=== PATIENT | female | born 1955 | race Caucasian/White ===

== ENCOUNTER 2019-10-27 10:47 | Outpatient (CLI) | payer BC, SELFPAY ==
--- NOTE | ~2019-10-27 | XR_ITS ---
EXAMINATION: XR ribs LT 2V w CXR 2V INDICATION: Left chest wall pain TECHNIQUE: PA and lateral views of the chest and 3 views of the left ribs were obtained. COMPARISON: 10/04/2011 FINDINGS: The lungs are free of acute opacities. There is no pleural effusion or pneumothorax. The ca rdiomediastinal silhouette is normal. There is mild levocurvature of the thoracic spine. There is mil d thoracic spondylosis. There is mild irregularity at left sixth costochondral junction. IMPRESSION: 1. Possible nondisplaced fracture at the left sixth costochondral junction. 2. No acute cardiopulmonary abnormality. Reviewed, dictated and finalized at location A. NTIFIC WRITER
== END 2019-10-27 10:48 | disposition home or self-care (01) ==
PROVIDERS: PCP Internal Medicine; Visit Provider Internal Medicine
DX: R07.89 Other chest pain (principal)
CPT/HCPCS: 71045; 71101

== ENCOUNTER 2020-07-02 08:32 | Outpatient (CLI) | payer OTHER, SELFPAY ==
[2020-07-02] MEDS: ZOLEDRONIC ACID 5 MG/100 ML 100 ML 400 MG IVPB (08:59)
[2020-07-02 09:00] VITALS: BP 117/70; PULSE 72; RESP 14; TEMP 36.6; O2SAT 98
== END 2020-07-02 08:33 | disposition home or self-care (01) ==
PROVIDERS: PCP Internal Medicine; Visit Provider Internal Medicine
DX: M81.0 Age-related osteoporosis without current pathological fracture (principal)
CPT/HCPCS: 96365; J3489

== ENCOUNTER 2021-04-28 13:27 | Outpatient (CLI) | payer BC, SELFPAY ==
[2021-04-28 14:58] LABS: SARS-CoV-2 RNA PCR Negative (Negative)
== END 2021-04-28 13:28 | disposition home or self-care (01) ==
PROVIDERS: PCP Internal Medicine; Visit Provider Internal Medicine
DX: Z20.822 Contact with and (suspected) exposure to COVID-19 (principal); J06.9 Acute upper respiratory infection, unspecified
CPT/HCPCS: C9803; U0003; U0005

== ENCOUNTER 2021-05-02 09:42 | Outpatient (CLI) | payer BC, SELFPAY ==
[2021-05-02 10:48] LABS: SARS-CoV-2 RNA PCR Positive (Negative)
== END 2021-05-02 09:43 | disposition home or self-care (01) ==
LOC: CHSLAB 09:44
PROVIDERS: PCP Internal Medicine; Visit Provider Internal Medicine
DX: U07.1 COVID-19 (principal)
CPT/HCPCS: C9803; U0003; U0005

== ENCOUNTER 2021-05-04 10:24 | Outpatient (CLI) | payer BC, SELFPAY ==
[2021-05-04] MEDS: ACETAMINOPHEN 325 MG TABLET 650 MG PO (10:45)
[2021-05-04] MEDS: FAMOTIDINE 20 MG TABLET PO (10:46)
[2021-05-04] MEDS: diphenhydrAMINE HCl CAP 25 MG CAPSULE PO (10:46)
[2021-05-04 11:00] VITALS: BMI 27.3
[2021-05-04 11:02] VITALS: BP 144/89; PULSE 77; RESP 18; TEMP 36.4
--- NOTE | 2021-05-04 11:04 | PC.NURSE ---
1050-- Patient ambulated to OP treatment room. C/o headache, sinus congestion and fatigue. Denies any SOB. Patient is Covid positive. Here today for IV infusion of Regeneron. Patient signed permit. Education regarding covid and the infusion given. --Idania Chicas RN
[2021-05-04 12:31] VITALS: BP 116/86; PULSE 60; RESP 18; TEMP 36.7
--- NOTE | 2021-05-04 12:55 | PC.NURSE ---
12:55-- Patient denies any side effects after receiving the IV infusion. Vital signs within normal limits for patient. Patient states I feel fine. Reviewed side effects with patient. Gave patient phone number to medical surgical floor. Instructed patient to call floor if has any problems or questions. Patient ambulated from OP treatment room independently. Safe exit from the hospital. --Idania Chicas RN
== END 2021-05-04 10:25 | disposition home or self-care (01) ==
PROVIDERS: PCP Internal Medicine; Visit Provider Internal Medicine
DX: Z23 Encounter for immunization (principal); U07.1 COVID-19
CPT/HCPCS: A9270; J7050; M0243; Q0243

== ENCOUNTER 2022-01-26 14:59 | Outpatient (CLI) | payer BC, SELFPAY ==
[2022-01-26 16:00] LABS: SARS-CoV-2 RNA PCR Positive (Negative)
== END 2022-01-26 15:00 | disposition home or self-care (01) ==
LOC: CHSLAB 15:01
PROVIDERS: PCP Nurse Practitioner Family; Visit Provider Nurse Practitioner Family
DX: U07.1 COVID-19 (principal); R05.9 Cough, unspecified; R50.9 Fever, unspecified
CPT/HCPCS: C9803; U0003; U0005

== ENCOUNTER 2022-03-07 07:52 | Outpatient (CLI) | payer BC, SELFPAY ==
--- NOTE | ~2022-03-07 | MM_ITS ---
EXAMINATION: MM screening [facility] BI w leyda HISTORY: Screening mammogram TECHNIQUE: Craniocaudal and mediolateral oblique 3-D tomosynthesis images were obtained and synthetic 2-D images were generated. CAD analysis was submitted and interpreted. COMPARISON: 08/31/2016, 08/19/2015 bilateral screening mammogram examinations BREAST PARENCHYMAL COMPOSITION: The breasts are almost entirely fatty. FINDINGS: There is no evidence of suspicious mass, calcification, or architectural distortion to sugg est malignancy in either breast. There has been no suspicious interval change. IMPRESSION: 1. No mammographic evidence of malignancy. 2. Recommend routine screening mammography in one year. BI-RADS Category 1: Negative Reviewed, dictated and finalized at location A.
--- NOTE | ~2022-03-07 | DEXA_ITS ---
Bone Density Report Name: RUSS VYAS Age: 66 Sex: Female Ethnicity: White Date of : 1955 Indication: hyperparathyroidism; prior fracture; cancer; hysterectomy; Referring Provider: Jessy Freed Study: Bone densitometry was performed. Exam Date: March 07, 2022 Accession number: [id number] Bone Density: Region BMD T-score Z-score Classification AP Spine(L1-L4) 0.741 -2.8 -0.9 Osteoporosis Femoral Neck (Left) 0.530 -2.9 -1.3 Osteoporosis Total Hip (Left) 0.759 -1.5 -0.2 Osteopenia Femoral Neck (Right) 0.541 -2.8 -1.2 Osteoporosis Total Hip (Right) 0.712 -1.9 -0.6 Osteopenia Femoral Neck Mean 0.535 -2.8 -1.2 Osteoporosis Total Hip Mean 0.736 -1.7 -0.4 Osteopenia World Health Organization criteria for BMD impression classify patients as: Normal (T-score at or above -1.0), Osteopenia (T-score between -1.0 and -2.5), or Osteoporosis (T-score at or below -2.5). 10-year Fracture Risk: FRAX not reported because: Some T-score for Spine Total or Hip Total or Femoral Neck at or below -2.5 Treated for osteoporosis Clinical Information Provided by Patient: Has had a low trauma fracture Is being treated for osteoporosis Has used the following medications: Reclast (i.e. zoledronate), Vitamin D Has the following medical conditions: Cancer, Hyperparathyroidism, Hysterectomy Patient maximum height was 62 Menopause Age: 46 No regular weight bearing exercise Does not regularly consume dairy products Drinks caffeinated beverages Onset of menses at age 15 Number of children 3 Impression: The patient has established osteoporosis, based on the Left Femoral Neck T-score and the existence of a prior fracture. The patient has risk factors, including: previous fracture. Discussion: It is important to ask patients whether they are taking their medications and to encourage continued and appropriate compliance with their osteoporosis therapies to reduce fracture risk. It is also important to review their risk factors and encourage appropriate calcium and vitamin D intakes, exercise, fall prevention and other lifestyle measures. Follow-Up: Consider a repeat BMD and Vertebral Fracture Assessment (VFA) exam in 2 years or sooner if medically necessary, to reassess this patient's status. Reported by: Dr. Alex Sinclair on 03/07/2022 8:33:00 AM. Reviewed, dictated and finalized at location AVania [facility]
== END 2022-03-07 07:53 | disposition home or self-care (01) ==
LOC: CHSIMG 07:54
PROVIDERS: PCP Internal Medicine; Visit Provider Student in an Organized Health Care Education/Training Program
DX: M81.0 Age-related osteoporosis without current pathological fracture (principal); Z12.31 Encounter for screening mammogram for malignant neoplasm of breast
CPT/HCPCS: 77063; 77067; 77080

== ENCOUNTER 2022-04-11 09:24 | Outpatient (CLI) | payer BC, SELFPAY ==
[2022-04-11 09:35] VITALS: BP 140/71; PULSE 88; RESP 14; TEMP 36.6; O2SAT 98
[2022-04-11] MEDS: ZOLEDRONIC ACID 5 MG/100 ML 100 ML 400 MG IVPB (09:35)
[2022-04-11 09:42] VITALS: BMI 27.3
--- NOTE | 2022-04-11 09:58 | PC.NURSE ---
Patient here for yearly Reclast infusion. Missed last year r/t Covid. Education given. No concerns voiced. IV Reclast administered. SEE MAR. Tolerated well. Safe exit hospital.
== END 2022-04-11 09:25 | disposition home or self-care (01) ==
LOC: CHSTREATRM 09:26
PROVIDERS: PCP Internal Medicine; Visit Provider Internal Medicine
DX: M81.0 Age-related osteoporosis without current pathological fracture (principal)
CPT/HCPCS: 96374; J3489

== ENCOUNTER 2022-09-09 21:48 | Emergency (ER) | payer BC, SELFPAY ==
[2022-09-09] VITALS (8 sets, daily range): BP systolic 141–181; BP diastolic 84–95; PULSE 90–106; RESP 15–23; TEMP 36.8; O2SAT 96–100
--- NOTE | ~2022-09-09 | XR_ITS ---
EXAMINATION: XR chest 2V DATE: 09/09/2022 22:45 INDICATION: Left chest pain TECHNIQUE: PA and lateral views of the chest were obtained. COMPARISON: Chest radiograph dated 10/27/2019 FINDINGS: Small calcified nodule at the right costophrenic angle consistent with old granulomatous disease. Per sistent mild streaky atelectasis/scarring at the left costophrenic angle. No other airspace opacities , pulmonary edema, pleural effusion or pneumothorax. The cardiomediastinal silhouette is normal. Mild thoracic spondylosis. IMPRESSION: 1. Unchanged mild atelectasis/scarring at the left costophrenic angle. No acute cardiopulmonary disea se. Reviewed, dictated and finalized at location A. GLASS BENDER IMPRESSION: 1. Unchanged mild atelectasis/scarring at the left costophrenic angle. No acute cardiopulmonary disease.
--- NOTE | 2022-09-09 22:23 | ECG_ITS ---
Measurements Intervals [place] Rate: 91 P: 25 MO: 152 QRS: -18 QRSD: 143 T: -9 QT: 386 QTc: 476 Interpretive Statements SINUS RHYTHM POSSIBLE LEFT ATRIAL ENLARGEMENT LOW-VOLTAGE QRS IN PRECORDIAL LEADS RIGHT BUNDLE BRANCH BLOCK ABNORMAL ECG NO PREVIOUS ECG AVAILABLE FOR COMPARISON Electronically Signed On 09-10-2022 15:34:23 [place] by Lakhwinder Reyes M.D.
--- NOTE | 2022-09-09 22:24 | ED.CHESTPAIN ---
HPI - Chest Pain General Chief Complaint: Chest Pain Stated Complaint: 2 days ago pain in neck;now armpit/chest;all Left Time Seen by Provider: 09/09/22 21:57 History of Present Illness HPI narrative: This is a 66-year-old female with past medical history of hypertension, hyperlipidemia who presents to the emergency department complaining of left axillary pain for the past 3 days. The patient notes approximately ago, she slipped and fell, landing on the bottom and had subsequent neck pain with occasional radiation to the left arm. 3 days ago, she notes she shaved under her armpit and approximately a day and a half later noted some swelling and pain in the area. It's described as dull and pressure-like, aggravated by movement of the arm or pressing in the axilla and alleviated by rest and warm compress. She states this is similar to a previous skin infection same area though worse. She denies fevers, chills, nausea/vomiting or cold sweats. She has no other complaints today. Related Data Home Medications Medication Instructions Recorded Confirmed atorvastatin 20 mg tablet 20 mg PO DAILY 06/23/20 04/11/22 levothyroxine 50 mcg capsule 25 mcg PO DAILY 06/23/20 04/11/22 metoprolol succinate 25 mg capsule 25 mg PO DAILY 06/23/20 04/11/22 sprinkle, ext. release 24 hr pantoprazole 20 mg tablet,delayed 40 mg PO QAM 06/23/20 04/11/22 release zoledronic acid 5 mg/100 mL in 5 mg IV ONCE 06/23/20 04/11/22 mannitol 5 %-water intravenous piggybck (Reclast) losartan See Rx Instructions .Route .COMPLEX 05/04/21 04/11/22 Allergies Allergy/AdvReac Type Severity Reaction Status Date / Time LONNIE Inhibitors Allergy Cough Verified 08/25/22 10:30 Review of Systems Review of Systems: CONSTITUTIONAL: Denies fever, chills, or sweats. EYES: Denies visual changes, redness, or discharge. ENT: Denies rhinorrhea, congestion, sore throat, or otalgia. CARDIOVASCULAR: Left axillary pain with radiation to the left chest denies palpitations, or edema. RESPIRATORY: Chronic dry cough, unchanged denies dyspnea. GASTROINTESTINAL: Denies abdominal pain, nausea, vomiting, or diarrhea. GENITOURINARY: Denies dysuria or hematuria. SKIN: Denies rash or itching. MUSCULOSKELETAL: Denies back pain, joint pain, or myalgia. NEUROLOGIC: Denies headache, numbness, dizziness, or weakness. PSYCHIATRIC: Denies anxiety or depression. [facility] Past Medical History Medical History Acid reflux Cystocele with rectocele High cholesterol Hypertension Irritable bowel syndrome Osteopenia Skin cancer on back Surgical History Surgical History H/O dilation and curettage H/O wrist surgery H/O: hysterectomy History of ankle surgery Family History Family History Mother Breast cancer Acute myocardial infarction Hypertension High cholesterol Father Cerebrovascular accident Other Family history of arthritis Family history of cardiovascular disease Social History Social History Smoking status: Never smoker Alcohol intake: current Drinks per week: 7 Substance use: never Exam Narrative: GENERAL: Well-developed, well-nourished, and in no acute distress. HEAD: Normocephalic, atraumatic. EYES: PERRLA and EOMI. ENT: Nares clear, no rhinorrhea or epistaxis. Mucous membranes moist. Oropharynx without tonsillar hypertrophy exudate or other lesions. Bilateral TMs pearly ott nonbulging NECK: Supple. No adenopathy or masses. No carotid bruits or JVD CHEST: Clear to auscultation. No respiratory distress. No wheezes rales or rhonchi. Tender to palpation at the lateral border of the left pectoral muscle, with small amount of swelling and in the axilla HEART: Regular rate and rhythm. No murmur heard. Normal peripheral pulses. ABDOME
[2022-09-09] MEDS: ACETAMINOPHEN 500 MG TABLET 1000 MG PO (22:30)
[2022-09-09 22:53] LABS: Basophils Absolute Auto 0.02 K/mm3 (0.00-0.10); Basophils Percent Auto 0.3 % (0.0-1.0); Eosinophils Absolute Auto 0.14 K/mm3 (0.02-0.50); Eosinophils Percent Auto 2.1 % (1.0-6.0); Hematocrit 41.3 % (35.0-42.0); Hemoglobin 13.5 g/dL (11.7-13.8); Immature Granulocyte Absolute 0.01 K/mm3 (0.00-0.00); Immature Granulocyte Percent A 0.2 % (0.0-0.0); Lymphocytes Absolute Auto 1.27 K/mm3 (1.10-4.50); Lymphocytes Percent Auto 19.4 % (18.0-42.0); Mean Corpuscular HGB Conc 32.7 g/dL (32.0-36.0); Mean Corpuscular Hemoglobin 28.7 pg (27.0-31.0); Mean Corpuscular Volume 87.9 fL (78.0-102.0); Mean Platelet Volume 10.2 fl (9.2-11.8); Monocytes Absolute Auto 0.44 K/mm3 (0.10-0.90); Monocytes Percent Auto 6.7 % (2.0-11.0); Neutrophils Absolute Auto 4.7 K/mm3 (1.7-7.2); Neutrophils Percent Auto 71.3 % (50.0-70.0); Platelet Count Result 236 K/mm3 (150-420); Red Cell Distribution Width 12.6 % (11.6-14.4); White Blood Count 6.5 K/mm3 (4.8-10.8)
[2022-09-09 23:11] LABS: Alanine Aminotransferase 24 U/L (14-59); Albumin Level 3.8 g/dL (3.4-5.0); Alkaline Phosphatase 79 U/L (46-116); Anion Gap 7 mmol/L (8-16); Aspartate Amino Transferase < 10 U/L (15-37); Bilirubin,Total 0.2 mg/dL (0.00-1.00); Blood Urea Nitrogen 16 mg/dL (7-18); Calcium 8.6 mg/dL (8.5-10.1); Carbon Dioxide 27 mmol/L (21-32); Chloride 108 mmol/L (98-108); Estimated CRCL calculation 49 ml/min; Estimated Glomerular Filt Rate > 60; Glucose 153 mg/dL (70-99); Osmolality Calculated 298 mOsm/kg (285-295); Potassium 3.8 mmol/L (3.5-5.1); Sodium 142 mmol/L (136-145); Troponin I 4.3 ng/L (0.00-60.4)
[2022-09-09] MEDS: CEPHALEXIN 500 MG CAPSULE PO (23:17)
== END 2022-09-09 23:27 | disposition home or self-care (01) ==
PROVIDERS: Emergency Provider Preventive Medicine Aerospace Medicine; PCP Internal Medicine
DX: L03.112 Cellulitis of left axilla (principal); E78.5 Hyperlipidemia, unspecified; I10 Essential (primary) hypertension
CPT/HCPCS: 36415; 71046; 80053; 84484; 85025; 93005; 99284; A9270

== ENCOUNTER 2023-04-16 08:01 | Outpatient (CLI) | payer BC, SELFPAY ==
--- NOTE | ~2023-04-16 | US_ITS ---
Limited Abdominal Sonogram: Real-time sonographic imaging of the right upper quadrant was performed. Clinical History: Right upper quadrant pain Findings: The liver appears normal with no evidence of mass lesion or bile duct dilatation. Main por abel vein demonstrates normal direction of flow. The gallbladder is well distended, and appears normal with no evidence of gallstone or wall thickening. The common bile duct measures 3 mm. The visualize d pancreas, aorta, and IVC are unremarkable. Impression: No significant abnormality seen. Reviewed, dictated and finalized at location M. Impression: No significant abnormality seen.
--- NOTE | ~2023-04-16 | MM_ITS ---
EXAMINATION: MM screening [facility] BI w leyda HISTORY: Screening mammogram TECHNIQUE: Craniocaudal and mediolateral oblique 3-D tomosynthesis images were obtained and synthetic 2-D images were generated. CAD analysis was submitted and interpreted. COMPARISON: 03/07/2022, 08/31/2016 bilateral screening mammogram examinations BREAST PARENCHYMAL COMPOSITION: The breasts are almost entirely fatty. FINDINGS: Stable benign circumscribed low-density intramammary lymph node in the posterior upper oute r left breast. Stable small bilateral circumscribed low-density axillary tail lymph nodes. Occasional benign calcifications. There is no evidence of suspicious mass, calcification, or architectural dist ortion to suggest malignancy in either breast. There has been no suspicious interval change. IMPRESSION: 1. No mammographic evidence of malignancy. 2. Recommend routine screening mammography in one year. BI-RADS Category 2: Benign finding(s). Reviewed, dictated and finalized at location A.
[2023-04-16 08:52] VITALS: BP 134/70; PULSE 78; RESP 14; TEMP 36.6; O2SAT 98
[2023-04-16 08:53] VITALS: BMI 26.5
[2023-04-16] MEDS: ZOLEDRONIC ACID 5 MG/100 ML 100 ML 400 MG IVPB (08:57)
--- NOTE | 2023-04-16 09:07 | PC.NURSE ---
Patient here for yearly IV Reclast infusion. Education given. No concerns voiced. IV Reclast administered see NOV.
--- NOTE | 2023-04-16 09:12 | PC.NURSE ---
Tolerated infusion well. Safe exit hospital. Will return next year when get a order.
== END 2023-04-16 08:02 | disposition home or self-care (01) ==
PROVIDERS: PCP Internal Medicine; Visit Provider Internal Medicine
DX: R10.11 Right upper quadrant pain (principal); M81.0 Age-related osteoporosis without current pathological fracture; Z12.31 Encounter for screening mammogram for malignant neoplasm of breast
CPT/HCPCS: 76705; 77063; 77067; 96374; J3489

== ENCOUNTER 2024-04-24 13:12 | Outpatient (CLI) | payer OTHER, SELFPAY ==
--- NOTE | ~2024-04-24 | DEXA_ITS ---
Bone Density Report Name: RUSS VYAS Age: 68 Sex: Female Ethnicity: White Date of : 1955 Indication: postmenopausal osteoporosis; monitoring treatment; hyperparathyroidism; prior fracture; cancer; hysterectomy; Referring Provider: Keenan Palacios Study: Bone densitometry was performed. Exam Date: April 24, 2024 Accession number: [id number] Bone Density: Region BMD T-score Z-score Classification AP Spine(L1-L4) 0.742 -2.8 -0.8 Osteoporosis Femoral Neck (Left) 0.579 -2.4 -0.7 Osteopenia Total Hip (Left) 0.726 -1.8 -0.3 Osteopenia Femoral Neck (Right) 0.560 -2.6 -0.9 Osteoporosis Total Hip (Right) 0.698 -2.0 -0.6 Osteopenia Femoral Neck Mean 0.569 -2.5 -0.8 Osteoporosis Total Hip Mean 0.712 -1.9 -0.5 Osteopenia World Health Organization criteria for BMD impression classify patients as: Normal (T-score at or above -1.0), Osteopenia (T-score between -1.0 and -2.5), or Osteoporosis (T-score at or below -2.5). 10-year Fracture Risk: FRAX not reported because: Some T-score for Spine Total or Hip Total or Femoral Neck at or below -2.5 Treated for osteoporosis Previous Exams: Region Exam Age BMD T-score BMD Change BMD Change Date g/cm2 vs Baseline vs Previous AP Spine (L1-L4) 04/24/2024 68 0.742 -2.8 0.001 (0.1%) 0.001 (0.1%) 03/07/2022 66 0.741 -2.8 Total Hip(Left) 04/24/2024 68 0.726 -1.8 -0.033 (-4.3%) -0.033 (-4.3%) 03/07/2022 66 0.759 -1.5 Total Hip(Right) 04/24/2024 68 0.698 -2.0 -0.015 (-2.1%) -0.015 (-2.1%) 03/07/2022 66 0.712 -1.9 *Denotes significance at 95% confidence level, LSC for AP Spine = 0.022 g/cm2, LSC for Total Hip = 0.027 g/cm2 Clinical Information Provided by Patient: Has had a low trauma fracture Is being treated for osteoporosis Has used the following medications: Reclast (i.e. zoledronate), Vitamin D Has the following medical conditions: Cancer, Hyperparathyroidism, Hysterectomy Patient maximum height was 62 Menopause Age: 50 No regular weight bearing exercise Does not regularly consume dairy products Drinks caffeinated beverages Onset of menses at age 15 Number of children 3 Impression: The patient has established osteoporosis, based on the Total Spine T-score and the existence of a prior fracture. The patient has risk factors, including: previous fracture. The BMD for the Total Hip(Left) decreased, changing by -4.3% since the last DXA exam. Discus
--- NOTE | ~2024-04-24 | MM_ITS ---
EXAMINATION: MM screening [facility] BI w leyda HISTORY: Screening TECHNIQUE: Craniocaudal and mediolateral oblique 3-D tomosynthesis images were obtained and synthetic 2-D images were generated. CAD analysis was submitted and interpreted. COMPARISON: Comparison to multiple prior studies sequentially, with oldest reviewed study dated 11/2014. BREAST PARENCHYMAL COMPOSITION: Not dense: There are scattered areas of fibroglandular density. FINDINGS: There is no evidence of suspicious mass, calcification, or architectural distortion to sugg est malignancy in either breast. There has been no suspicious interval change. IMPRESSION: 1. No mammographic evidence of malignancy. 2. Recommend routine screening mammography in one year. BI-RADS Category 1: Negative Reviewed, dictated and finalized at location B.
== END 2024-04-24 13:13 | disposition home or self-care (01) ==
LOC: CHSIMG 13:14
PROVIDERS: PCP Internal Medicine; Visit Provider Internal Medicine
DX: Z12.31 Encounter for screening mammogram for malignant neoplasm of breast (principal); Z78.0 Asymptomatic menopausal state; M85.89 Other specified disorders of bone density and structure, multiple sites; M81.0 Age-related osteoporosis without current pathological fracture
CPT/HCPCS: 77063; 77067; 77080

== ENCOUNTER 2024-05-07 10:29 | Outpatient (CLI) | payer OTHER, SELFPAY ==
--- NOTE | ~2024-05-07 | XR_ITS ---
XR foot RT min 3V Ordering provider: Keenan Palacios MD History: . R mid foot pain x 1 month . Comparison: None. FINDINGS: BONES: No acute fracture or dislocation. Calcaneus spur. JOINT SPACES: Osteoarthritic changes of the ankle joint with cystic changes in the talus. No tarsal c oalition. SOFT TISSUES: Normal. IMPRESSION: No acute osseous abnormality of the right foot. Osteoarthritic changes of the ankle joint. Calcaneal spur. Reviewed, dictated and finalized at location A.
== END 2024-05-07 10:30 | disposition home or self-care (01) ==
LOC: CHSIMG 10:31
PROVIDERS: PCP Internal Medicine; Visit Provider Internal Medicine
DX: M79.671 Pain in right foot (principal); M19.071 Primary osteoarthritis, right ankle and foot; M77.31 Calcaneal spur, right foot
CPT/HCPCS: 73630

== ENCOUNTER 2024-08-04 08:20 | Outpatient (CLI) | payer OTHER, SELFPAY ==
[2024-08-04 08:59] VITALS: BP 136/86; PULSE 74; RESP 18; TEMP 36.4; O2SAT 98
[2024-08-04] MEDS: ZOLEDRONIC ACID 5 MG/100 ML 100 ML 400 MG IVPB (09:14)
== END 2024-08-04 08:21 | disposition home or self-care (01) ==
LOC: CHSTREATRM 08:23
PROVIDERS: PCP Internal Medicine; Visit Provider Internal Medicine
DX: M81.0 Age-related osteoporosis without current pathological fracture (principal)
CPT/HCPCS: 96374; J3489

== ENCOUNTER 2024-09-27 12:18 | Emergency (ER) | payer OTHER, SELFPAY ==
--- NOTE | ~2024-09-27 | XR_ITS ---
XR ankle RT min 3V DATE: 09/27/2024 12:29 INDICATION: Fall. Right ankle pain. TECHNIQUE: 3 views COMPARISON: None FINDINGS: There is osteopenia. Mild ankle soft tissue swelling. There is a virtually nondisplaced linear transverse fracture of the lateral malleolus. There is a virtually nondisplaced linear transverse fracture of the medial malleolus. The posterior malleolus appears intact. The ankle mortise appears preserved. Mild posterior and prominent plantar calcaneal enthesopathy. IMPRESSION: Virtually nondisplaced bimalleolar fracture Reviewed, dictated and finalized at location A. LOOP MACHINE OPERATOR
[2024-09-27 12:20] VITALS: BP 115/63; PULSE 88; RESP 14; TEMP 37.4; O2SAT 97
--- NOTE | 2024-09-27 12:23 | ED.LOWEXIN ---
HPI - Extremity Injury (Lower) General Chief Complaint: Extremity Injury, Lower Stated Complaint: ankle injury Time Seen by Provider: 09/27/24 12:22 Source: patient and family Mode of arrival: wheelchair Limitations: no limitations History of Present Illness HPI Narrative: this is a 69-year-old female presents with a right ankle injury after she slipped on a patch of ice fell injured the lateral aspect of her right ankle with no other injuries noted there is some mild swelling no bruising no numbness or tingling has good range of motion of her ankle. Did take Aleve prior to arrival to the emergency department. Current pain level is about 2/10. complaint: ankle injury Onset (ago): hour(s) Injury: Right: ankle ( pain with swelling) Type of Injury: inversion Place: street/outdoors Severity: mild Severity scale (1-10): 2 Relieving factors: NSAID Related Data Home Medications ?Medication ?Instructions ?Recorded ?Confirmed ?Last Taken ?Type atorvastatin 20 mg tablet 20 mg PO DAILY 06/23/20 09/27/24 08/03/24 History levothyroxine 50 mcg capsule 25 mcg PO DAILY 06/23/20 09/27/24 08/03/24 History metoprolol succinate 25 mg capsule 25 mg PO DAILY 06/23/20 09/27/24 08/04/24 History sprinkle, ext. release 24 hr pantoprazole 20 mg tablet,delayed 40 mg PO QAM 06/23/20 09/27/24 08/03/24 History release zoledronic acid 5 mg/100 mL in 5 mg IV ONCE 06/23/20 09/27/24 04/16/23 History mannitol 5 %-water intravenous 5 piggybck (Reclast) losartan See Rx Instructions .Route .COMPLEX 05/04/21 09/27/24 08/03/24 History ciprofloxacin HCl 250 mg tablet 250 mg PO Q12H 09/27/24 09/27/24 Unknown History Allergies Allergy/AdvReac Type Severity Reaction Status Date / Time LONNIE Inhibitors Allergy Cough Verified 09/27/24 12:19 Review of Systems Review of Systems: All systems reviewed & are unremarkable except as noted in HPI and below PMFSH Past Medical History Medical History Skin cancer on back Osteopenia Cystocele with rectocele Hypertension Irritable bowel syndrome High cholesterol Acid reflux Surgical History Surgical History H/O wrist surgery H/O dilation and curettage History of ankle surgery H/O: hysterectomy Family History Family History Mother Breast cancer Acute myocardial infarction Hypertension High cholesterol Father Cerebrovascular accident Other Family history of arthritis Family history of cardiovascular disease Social History Social History Smoking status: Never smoker Alcohol intake: current Drinks per week: 7 Substance use: never Exam Const: General: healthy appearing, no acute distress and alert Nutritional Appearance: well nourished Orientation/consciousness: patient oriented x3 Limitations: no limitations Resp: Effort & Inspection: normal respiratory effort Auscultation: clear to auscultation bilaterally Cardio: Rate: regular rate Rhythm: regular rhythm GI: GI Palp: Yes Soft to palpation Auscultation: normal bowel sounds Skin: General skin exam: normal color Rashes: no rashes Neuro: General: patient oriented x3 and moves all extremities Extrem: Other: Mild swelling to the lateral malleolus of the right ankle. Course Course Emergency Course: X-ray of the right ankle performed reviewed with patient and family. Vital Signs Vital signs: Vital Signs Temperature 37.4 C 09/27/24 12:20 Pulse Rate 88 09/27/24 12:20 Respiratory Rate 14 09/27/24 12:20 Blood Pressure 115/63 09/27/24 12:20 Pulse Oximetry 97 09/27/24 12:20 Oxygen Delivery Room Air 09/27/24 12:20 Temperature 37.4 C 09/27/24 12:20 Pulse Rate 88 09/27/24 12:20 Respiratory Rate 14 09/27/24 12:20 Blood Pressure 115/63 09/27/24 12:20 Pulse Oximetry 97 09/27/24 12:20 Oxygen Delivery Room Air 09/27/24 12:20 Critical Care Time Critical Care Time Critical Care Time: No Discharge Plan Discharge Clinical Impression: Fracture of ankle Patient Disposition: Home, Self-Care Condition: Stable Instructions: Antibiotic Form, Ankle Fracture (ED) Additional Instructions: advised to take medication as prescribed as needed, follow with primary and Orthopedics further evaluation and treatment. No weight-bearing until seen by orthopedist. Patient unwilling to do a posterior OCL and is willing to do only a short cast for her unstable fracture of her by malleolar ankle. Advised patient of the risks and patient understands and still wants to proceed with some posterior OCL. Patient Language: [place] Prescriptions: New tramadol 50 mg tablet 50 mg PO Q6H PRN (Reason: pain) Qty: 20 0RF No Action losartan See Rx Instructions .ROUTE .COMPLEX Rx Instructions: 50 mg orally ciprofloxacin HCl 250 mg tablet 250 mg PO Q12H pantoprazole 20 mg tablet,delayed release (DR/EC) 40 mg PO QAM atorvastatin 20 mg tablet 20 mg PO DAILY metoprolol succinate 25 mg capsule,sprinkle,ER 24hr 25 mg PO DAILY levothyroxine 50 mcg capsule 25 mcg PO DAILY zoledronic [id number] [Reclast] 5 mg/100 mL piggyback 5 mg IVPB ONCE Rx Instructions: administer over at least 15 mins nystatin 100,000 unit/gram powder 1 applic topical BID Qty: 60 2RF nystatin 100,000 unit/gram cream 1 applic topical BID Qty: 15 0RF Follow-up/Referrals: Keenan Palacios MD [Primary Care Provider] - Time of Disposition: 13:23
--- NOTE | 2024-09-27 13:20 | PC.NURSE ---
pt states she cannot tolerate an ocl. states her skin itches and she has anxiety and claustrophobia. states she will take it off at home. requesting a gel stirrup splint only. erp and this software writer at bedside explaining need for immobilization. pt continues to refuse ocl. states she will sx an ama form if needed.
--- NOTE | 2024-09-27 13:34 | PC.NURSE ---
pt allowed stockinet and soft roll to be applied. requesting a gel stirrup splint at this point. continues to refuse ocl. awaiting call back from ortho o/c at [facility] for splinting advise. neuro-circ checks to distal right foot remains wnl. arom noted to same. right ppp. right leg elevated on pillow.
[2024-09-27 14:00] VITALS: BP 129/70; PULSE 71; RESP 18; TEMP 36.8; O2SAT 99
== END 2024-09-27 14:06 | disposition home or self-care (01) ==
LOC: CHSED 12:54
PROVIDERS: Emergency Provider Emergency Medicine; PCP Internal Medicine
DX: S82.844A Nondisplaced bimalleolar fracture of right lower leg, initial encounter for closed fracture (principal); W00.0XXA Fall on same level due to ice and snow, initial encounter
CPT/HCPCS: 29515; 73610; 99284; L4350

== ENCOUNTER 2024-10-10 13:35 | Outpatient (CLI) | payer OTHER, SELFPAY ==
--- NOTE | ~2024-10-10 | XR_ITS ---
HISTORY: Rt. ankle fracture x2 weeks, f/u COMPARISON: 09/30/2024 TECHNIQUE: 3 views of the right ankle were performed FINDINGS: Redemonstration of an irregular lucency within the lateral distal fibula corresponding to patient's k nown lateral malleolar fracture. Trace callus formation is identified. Minimally transverse lucency within the medial malleolus, largely unchanged from prior. Trace callus formation is identified. Large calcaneal spur. Ossification of the insertion of the Achilles tendon. IMPRESSION: Redemonstration of patient's known bimalleolar fracture with only trace callus formation , as detailed above. Reviewed, dictated and finalized at location A. GE REPAIR CREW PERSON IMPRESSION: Redemonstration of patient's known bimalleolar fracture with only trace callus formation, as detailed above.
--- OUTSIDE RECORDS SUMMARY | 2024-10-10 13:39 | XMS_ITS | Encounter Summary ---
Author Organization [facility] Address [address] [facility] [place] [address] Care Team Providers Care Recreation Program Specialist Name Role Phone Keenan Palacios MD Primary Care Provider [phone] Encounter Details Date Type Department Care Team (Late st Contact Info) Description 09/05/2023 Lab Requisition [facility] - DermPath Lab [address] [facility], [place] [address] Alejandra Gilbert MD [address] [facility] 3 [place] [address] Social History Tobacco Use Types Packs/Day Years Used Date Smoking Tobacco: Never Smokeless Tobacco: Never Alcohol Use Standard Drinks/Week Comments Yes 2.5 (1 standard drink = 0.6 oz p ure alcohol) Sex and Gender Information Value Date Recorded Sex Assigned at Not on file Gender Identity Not on file Sexual Orientation Not on file documented as of this encounter Plan of Treatment Not on file documented as of this encounter Procedures Procedure Name Priority Date/Time Associated Diagnosis Comments DERMATOPATHOLOGY Routine 09/05/2023 9:11 AM EXECUTIVE VICE PRESIDENT documented in this encounter Results * DERMATOPATHOLOGY (09/05/2023 9:11 AM EXECUTIVE VICE PRESIDENT) Case Report Dermatopathology Report ? Case: [id number] ? Authorizing Provider: ??Alejandra Gilbert MD ?Collected: ? 09/05/2023 09:11 AM ? Ordering Location: ? [facility] DermPath Lab ? Received: ?09/05/2023 02:08 PM ? Pathologist: ? Jennie Guzman MD ? Specimen: ?Skin, left FA ? 3 1:08 PM [facility] DERMATOPATHOLOGY LABORATORY Final Diagnosis Specimen A. SKIN, left FA: DERMAL SCAR RESIDUAL SQUAMOUS CELL CARCINOMA NOT IDENTIFIED (L90.5) BENIGN VERRUCOUS KERATOSIS (L82.1) 3 1:08 PM [facility] DERMATOPATHOLOGY LABORATORY Clinical History SCCIS 3 1:08 PM [facility] DERMATOPATHOLOGY LABORATORY Gross Description Specimen A: Received is one formalin filled container labeled with the patient's name and designated left FA. The specimen consists of a non-oriented ellipse of skin measuring 99i97o0 mm. The margin is inked green. The 12 o'clock and 6 o'clock tips are submitted in cassette 1. The remainder of the ellipse is serially sectioned and submitted in cassette 2 - 3. Jar 0. 3 1:08 PM [facility] DERMATOPATHOLOGY LABORATORY Microscopic Description Specimen A. SKIN, left FA: There are fibroblasts and collagen bundles oriented parallel to the skin surface. There are elongated blood vessels, some of which are oriented perpendicular to the skin surface. No residual squamous cell carcinoma is identified. Sections show hyperkeratosis, papillomatosis, hypergranulosis, and acanthosis. These histological findings can be seen in a verruca vulgaris or a seborrheic keratosis. 3 1:08 PM [facility] DERMATOPATHOLOGY LABORATORY Disclaimer An external and internal positive and negative controls are appropriate for the histochemical, immunohistochemical and immunofluorescence stain(s) in this case (if any), except where stated explicitly. The performance characteristics of the stain(s) cited in this report were developed and its performance characteristic determined by the Dermatopathology Laboratory at [facility], directed by Dr. Mimi Briseno. These tests need not be, and therefore are not, approved by the [place] Food and Drug Administration. The tests are used for clinical purposes. Billing Codes Specimen Charges Stain Charges 07449 1 3 1:08 PM [facility] DERMATOPATHOLOGY LABORATORY Embedded Images 3 1:08 PM [facility] DERMATOPATHOLOGY LABORATORY Pathology/Cytolo gy TISSUE SPECIMEN FROM SKIN / Unknown 09/05/2023 9:11 AM EXECUTIVE VICE PRESIDENT 09/05/2023 2:08 PM EXECUTIVE VICE PRESIDENT Alejandra Gilbert MD LAB - PATHOLOGY/CYTO LOGY ORDERABLES DERMATOPATHOLOGY LABORATORY [facility] - Department of Dermatology [address], [address] [phone] documented in this encounter Visit Diagnoses Not on filedocumented in this encounter Care Teams Recreation Program Specialist Relationship Specialty Start Date End Date Keenan Palacios MD [address] [place] [phone] PCP - General 07/26/21 documented as of this encounter
--- OUTSIDE RECORDS SUMMARY | 2024-10-10 13:39 | XMS_ITS | Encounter Summary ---
Author Organization [facility] Address [address] [facility] [place] [address] Care Team Providers Care Airplane Navigator Name Role Phone Keenan Palacios MD Primary Care Provider [phone] Encounter Details Date Type Department Care Team (Late st Contact Info) Description 07/18/2023 Lab Requisition [facility] - DermPath Lab [address] [facility], [place] [address] Alejandra Gilbert MD [address] [facility] 3 [place] [address] Social History Tobacco Use Types Packs/Day Years [...] Priority Date/Time Associated Diagnosis Comments DERMATOPATHOLOGY Routine 07/18/2023 10:0 7 AM CDT documented in this encounter Results * DERMATOPATHOLOGY (07/18/2023 10:07 AM CDT) Case Report Dermatopathology Report ? Case: [id number] ? Authorizing Provider: ??Alejandra Gilbert MD ?Collected: ? 07/18/2023 10:07 AM ? Ordering Location: ? [facility] DermPath Lab ? Received: ?07/19/2023 06:01 AM ? Pathologist: ? Jennie Guzman MD ? Specimen: ?Skin, left forearm ? 3 2:59 PM CDT DERMATOPATHOLOGY LABORATORY Final Diagnosis Specimen A. 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 The specimen consists of a shave biopsy measuring 6x5x1 mm. Jar 0. 3 2:59 PM CDT DERMATOPATHOLOGY LABORATORY Microscopic Description Specimen A. SKIN, left forearm: The epidermis shows parakeratosis, full thickness disorderly maturation of keratinocytes, mitoses at different levels, and dyskeratotic cells. Additionally, there is focal parakeratosis. The lower half of the epidermis shows disorderly maturation of keratinocytes with nuclear pleomorphism. 3 2:59 PM CDT DERMATOPATHOLOGY LABORATORY Disclaimer An external and internal positive and negative controls are appropriate for the histochemical, immunohistochemical and immunofluorescence stain(s) in this case (if any), except where stated explicitly. The performance characteristics of the stain(s) cited in this report were developed and its performance characteristic determined by the Dermatopathology Laboratory at [facility], directed by Dr. Mimi Briseno. These tests need not be, and therefore are not, approved by the [place] Food and Drug Administration. The tests are used for clinical purposes. Billing Codes Specimen Charges Stain Charges 86080 1 3 2:59 PM CDT DERMATOPATHOLOGY LABORATORY Embedded Images 3 2:59 PM CDT DERMATOPATHOLOGY LABORATORY Pathology/Cytolo gy TISSUE SPECIMEN FROM SKIN / Unknown 07/18/2023 10:07 AM CDT 07/19/2023 6:01 AM CDT Alejandra Gilbert MD LAB - PATHOLOGY/CYTO LOGY ORDERABLES DERMATOPATHOLOGY LABORATORY [facility] - Department of Dermatology [facility] [address] [place] [address], [address] [phone] documented in this encounter Visit Diagnoses Not on filedocumented in this encounter Care Teams Airplane Navigator Relationship Specialty Start Date End Date Keenan Palacios MD [address] [place] [phone] PCP - General 07/26/21 documented as of this encounter
--- OUTSIDE RECORDS SUMMARY | 2024-10-10 13:39 | XMS_ITS | Clinical Summary ---
Author Organization [facility] Address [address] [place] [address] Care Team Providers Care Log Yard Manager Name Role Phone Keenan Palacios MD Primary Care Provider [phone] Source Comments [facility],non-owned Affiliates and Associated Physician Practices is amultiple site organization consisting of ambulatory clinics and hospital sitesin [place], [place], [place] and [place]. This disclosure is being madepursuant to the Care Everywhere program and may not contain all information available regarding this patient. Last updated 18.[facility] Allergies No known active allergies Medications * Be aware that medications may not be up to date on this document. Alwaysverify current medications with the patient. Medication Sig Dispensed Refills Start Date End Date Status metoprolol tartrate IR (LOPRESSOR) 100 MG tablet Take 100 mg by mouth 2 times daily. Active RSREMKT-LFDXSDKOX-Y ITAMIN D PO Take by mouth. Calcium 630/Vit D 400 Active Zoledronic Acid (RECLAST IV) by Intravenous route. One time per year Active docusate sodium (COLACE) 100 MG capsule Take 1 Cap by mouth 2 times daily. 100 Cap 5 05/16/2011 Active sulfamethoxazole-tr imethoprim (BACTRIM DS; SEPTRA DS) 800-160 MG tablet Take 1 Tab by mouth every 12 hours. For duration of catheterization. If patient is sent home without a catheter, this prescription may be disregarded. 14 Tab 0 05/16/2011 Active oxycodone-acetamino phen (PERCOCET) 5-325 MG tablet Take 1 Tab by mouth every 6 hours as needed for Pain. 30 Tab 0 05/16/2011 Active Active Problems No known active problems Social History Tobacco Use Types Packs/Day Years Used Date Smoking Tobacco: Never Smokeless Tobacco: Never Alcohol Use Standard Drinks/Week Comments Yes 2.5 (1 standard drink = 0.6 oz p ure alcohol) Sex and Gender Information Value Date Recorded Sex Assigned at Not on file Gender Identity Not on file Sexual Orientation Not on file Last Filed Vital Signs Vital Sign Reading Time Taken Comments Blood Pressure 127/65 05/16/2011 12:10 PM CDT Pulse 61 05/16/2011 7:50 AM CDT Temperature 36.7 ??C (98.1 ??F) 05/16/2011 12:10 PM C DT Respiratory Rate 18 05/16/2011 12:10 PM CDT Oxygen Saturation 98% 05/16/2011 12:10 PM CDT Inhaled Oxygen Concentration - - Weight 68 kg (150 lb) 05/12/2011 11:35 AM CDT Height 157.5 cm (5' 2 ) 05/12/2011 11:35 AM CDT Body Mass Index 27.44 05/12/2011 11:35 AM CDT Plan of Treatment Health Maintenance Due Date Last Done Comments BONE DENSITY TESTING 1955 COLOGUARD (AGES 45-75) - COL ON CA SCREENING 1955 COLON MONITORING 1955 COLONOSCOPY - COLON CA SCREENING 1955 CT COLONOGRAPHY - COLON CA SCREENING 1955 Colorectal Cancer Screening 1955 FIT - COLON CA SCREENING 1955 FLEX SIG - COLON CA SCREENING 1955 LIPID TESTING 1955 MAMMOGRAM 1955 HEPATITIS C SCREENING 09/05/1973 DTAP/TDAP/TD VACCINES (1 - Tdap) 1974 PNEUMOCOCCAL VACCINE 50+ (1 of 1 - PCV) 2005 ZOSTER VACCINE (1 of 2) 2005 COVID-19 VACCINE ( - 2023-2 5 season) 2024 INFLUENZA VACCINE (#1) 2024 DEPRESSION SCREENING 09/17/2024 Respiratory Syncytial Virus (RSV) Vaccine Pt: or over 60 yrs (1 - 1-dose 75+ series) 2030 HEPATITIS B VACCINE Aged Out No longe r eligible based on patient's age to complete this topic HIB VACCINE Aged Out No longer eligi ble based on patient's age to complete this topic HPV VACCINE Aged Out No longer eligi ble based on patient's age to complete this topic MENINGOCOCCAL (Group B) VACCINE Aged Out No longer eligible based on patient's age to complete this topic MENINGOCOCCAL VACCINE Aged Out No damon akshat eligible based on patient's age to complete this topic Advance Directives * FULL RESUSCITATION (Latest Code Status on File) Date Activated Date Inactivated Comments 05/15/2011 12:38 PM 05/17/2011 5:10 AM Care Teams Log Yard Manager Relationship Specialty Start Date End Date Keenan Palacios MD [address] [place] [address] PCP - General 07/26/21
--- OUTSIDE RECORDS SUMMARY | 2024-10-10 13:39 | XMS_ITS | Referral Summary ---
Author Organization [facility] Address [address] [place] [address] Care Team Providers Care Dye Range Tender Name Role Phone Keenan Palacios MD Primary Care Provider Source Comments [facility],non-owned Affiliates and Associated Physician Practices is amultiple site organization consisting of ambulatory clinics and hospital sitesin [place], [place], [place] and [place]. This disclosure is being madepursuant to the Care Everywhere program and may not contain all information available regarding this patient. Last updated 18.[facility] Allergies No known active allergies Medications * Be aware that medications may not be up to date on this document. Alwaysverify current medications with the patient. Medication Sig Dispensed Refills Start Date End Date Status metoprolol tartrate IR (LOPRESSOR) 100 MG tablet Take 100 mg by mouth 2 times daily. Active [id number]-R ITAMIN D PO Take by mouth. Calcium [...] 05/12/2011 11:35 AM CDT Plan of Treatment Not on file Advance Directives * FULL RESUSCITATION (Latest Code Status on File) Date Activated Date Inactivated Comments 05/15/2011 12:38 PM 05/17/2011 5:10 AM Care Teams Dye Range Tender Relationship Specialty Start Date End Date Keenan Palacios MD [address] [place] [address] [facility] - General 07/26/21
--- OUTSIDE RECORDS SUMMARY | 2024-10-10 13:39 | XMS_ITS | Patient Health Summary ---
Author Organization [facility] Address [address] [place] [address] Care Team Providers Care Rn Shift Mgr Name Role Phone Keenan Palacios MD Primary Care Provider [phone] Note from [facility],non-owned Affiliates and Associated Physician Practices is amultiple site organization consisting of ambulatory clinics and hospital sitesin [place], [place], [place]. This disclosure is being madepursuant to the Care Everywhere program and may not contain all information available regarding this patient. Last updated 18.[facility] Allergies No known active allergies Medications * Be aware that medications may not be up to date on this document. Alwaysverify current medications with the patient. * metoprolol tartrate IR (LOPRESSOR) 100 MG tablet Take 100 mg by mouth 2 times daily. * XNMVRPH-JEGUTORYR-JYUTXRG D PO Take by mouth. Calcium 630/Vit D 400 * Zoledronic Acid (RECLAST IV) by Intravenous route. One time per year * docusate sodium (COLACE) 100 MG capsule(Started 05/16/2011) Take 1 Cap by mouth 2 times daily. 5 refills left * sulfamethoxazole-trimethoprim (BACTRIM DS; SEPTRA DS) 800-160 MG tablet (Started 05/16/2011) Take 1 Tab by mouth every 12 hours. For duration of catheterization. If patient is sent home without a catheter, this prescription may be disregarded. * oxycodone-acetaminophen (PERCOCET) 5-325 MG tablet(Started 05/16/2011) Take 1 Tab by mouth every 6 hours as needed for Pain. Active Problems No known active problems Social [...] Mass Index 27.44 05/12/2011 11:35 AM CDT Procedures * DERMATOPATHOLOGY(Performed 09/05/2023) * DERMATOPATHOLOGY(Performed 07/18/2023) * DERMATOPATHOLOGY(Performed 08/16/2021) * DERMATOPATHOLOGY(Performed 07/26/2021) * UROFLOWMETRY(Performed 05/17/2011) * CARDIAC EKG ORDER(Performed 05/17/2011) * LAB RESULTS ORDER(Performed 05/17/2011) * IMAGING/RADIOLOGY/XRAY RESULTS ORDER(Performed 05/17/2011) * HGB HCT PANEL(Performed 05/16/2011) * TYPE + SCREEN PANEL(Performed 05/15/2011) * GROSS + MICRO EXAM(Performed 08/28/2005) Results * DERMATOPATHOLOGY (09/05/2023 9:11 AM RADIO MESSAGE ROUTER) Only the most recent of4 resultswithin the time period is included. Case Report Dermatopathology Report ? Case: [id number] ? Authorizing Provider: ??Alejandra Gilbert MD ?Collected: ? 09/05/2023 09:11 AM ? Ordering Location: ? [facility] DermPath Lab ? Received: ?09/05/2023 02:08 PM ? Pathologist: ? Jennie Guzman MD ? Specimen: ?Skin, left FA ? 3 1:08 PM [facility] DERMATOPATHOLOGY LABORATORY Final Diagnosis Specimen A. SKIN, left FA: DERMAL SCAR RESIDUAL SQUAMOUS CELL CARCINOMA NOT IDENTIFIED (L90.5) BENIGN VERRUCOUS KERATOSIS (L82.1) 3 1:08 PM [facility] DERMATOPATHOLOGY LABORATORY Clinical History SCCIS 3 1:08 PM [facility] DERMATOPATHOLOGY LABORATORY Gross Description Specimen A: Received is one formalin filled container labeled with the patient's name and designated left FA. The specimen consists of a non-oriented ellipse of skin measuring 12g85o5 mm. The margin is inked green. The 12 o'clock and 6 o'clock tips are submitted in cassette 1. The remainder of the ellipse is serially sectioned and submitted in cassette 2 - 3. Jar 0. 3 1:08 PM [facility] DERMATOPATHOLOGY LABORATORY Microscopic Description Specimen A. SKIN, [...] or a seborrheic keratosis. 3 1:08 PM [facility] DERMATOPATHOLOGY LABORATORY Disclaimer An external and internal positive and negative controls are appropriate for the histochemical, immunohistochemical and immunofluorescence stain(s) in this case (if any), except where stated explicitly. The performance characteristics of the stain(s) cited in this report were developed and its performance characteristic determined by the Dermatopathology Laboratory at [facility], directed by Dr. Mimi Briseno. These tests need not be, and therefore are not, approved by the [place] Food and Drug Administration. The tests are used for clinical purposes. Billing Codes Specimen Charges Stain Charges 50064 1 3 1:08 PM [facility] DERMATOPATHOLOGY LABORATORY Embedded Images 3 1:08 PM [facility] DERMATOPATHOLOGY LABORATORY Pathology/Cytolo gy TISSUE SPECIMEN FROM SKIN / Unknown 09/05/2023 9:11 AM RADIO MESSAGE ROUTER 09/05/2023 2:08 PM RADIO MESSAGE ROUTER Alejandra Gilbert MD LAB - PATHOLOGY/CYTO LOGY ORDERABLES DERMATOPATHOLOGY LABORATORY [facility] - Department of Dermatology [address], [address] [phone] * LAB RESULTS ORDER (05/17/2011 5:07 PM CDT) Narrative Transcriptions Document, Scanned - 05/17/2011 5:07 PM CDT Scanned Document LAB - THERAPEUTIC DR RYDER MONITORING ORDERABLES * IMAGING/RADIOLOGY/XRAY RESULTS ORDER (05/17/2011 5:07 PM CDT) Anatomical Region Laterality Modality Other Narrative Transcriptions Document, Scanned - 05/17/2011 5:07 PM CDT Scanned Document IMAGING * CARDIAC EKG ORDER (05/17/2011 5:07 PM CDT) Narrative Transcriptions Document, Scanned - 05/17/2011 5:07 PM CDT Scanned Document CARDIAC SERVICES ORD ERABLES * UROFLOWMETRY (05/17/2011 5:07 PM CDT) Narrative Transcriptions Document, Scanned - 05/17/2011 5:07 PM CDT Scanned Document PROCEDURE ORDERAB LES * (ABNORMAL) HGB HCT PANEL (05/16/2011 4:30 AM CDT) Hemoglobin 12.1 12.0 - 16.0 gm/dl [facility] Hematocrit 35.9(L) 36.0 - 48.0 % [facility] BLOOD SPECIMEN / Unknown 05/16/2011 4:30 AM CDT 05/16/2011 4:53 AM CDT Yaquelin Izquierdo MD LAB - HEMATOLOG Y ORDERABLES Performing Organization Address [facility] Co de Phone Number [facility] [address] [place] [address] * TYPE + SCREEN PANEL (05/15/2011 11:03 AM CDT) Pathologist [facility] ABO Rh A Pos [facility] Antibody Screen Neg Negative [facility] BLOOD SPECIMEN / Unknown 05/15/2011 11:03 AM CDT 05/15/2011 11:32 AM CDT Yaquelin Izquierdo MD LAB - BLOOD BAN K ORDERABLES Performing Organization Address [facility] de Phone Number [facility] [address] [place] [address] * GROSS + MICRO EXAM (08/28/2005 3:46 PM RADIO MESSAGE ROUTER) Result CASE NUMBER [id number] Comment: ORDERING PHYSICIAN ??OSMAN RIZVI SPECIMEN TYPE ?Colon Biopsy-right and left Date ? 08/28/2005 Physician ?Kelsey Gross Description ? The specimen is received in two Formalin filled containers labeled with the patient's name, Sepideh Ratliff. 1) ??The first container is labeled right colon. ??It consists of irregular spears fragments of tissue measuring 0.3 x 0.3 x 0.2 cm in aggregate. ??It is submitted entirely in cassette A. 2) ??The second container is labeled left colon. ??It consists of irregular spears fragments of tissue measuring 0.3 x 0.3 x 0.3 cm in aggregate. ??It is submitted entirely in cassette B. SK/tellez Microscopic Exam ? Specimen #'s 1 and 2 sections show fragments of colonic mucosa with unremarkable histology. The surface epithelium and crypts are normal. The lamina propria shows the usual number of chronic inflammatory cells. Acute inflammation is not seen. There is no evidence of atypia or malignancy. MC/na Diagnosis ? I. ?Right colon, biopsy -- ?No pathologic diagnosis II. ?? Left colon, biopsy -- ?No pathologic diagnosis MC/na Biochemistry Professor ? na Pathologist ?Ankita Stewart M.D. [place]. ?08/29/2005 0944 <2> CPT code ? 45619f6 MISCELLANEOUS SAMPLES / Unknown 08/28/2005 3:46 PM RADIO MESSAGE ROUTER 08/28/2005 3:46 PM RADIO MESSAGE ROUTER Historical Provider LAB - PATHOLOGY/C YTOLOGY ORDERABLES Care Teams Rn Shift Mgr Relationship Specialty Start Date End Date Keenan Palacios MD [address] [place] [address] PCP - General 07/26/21
--- OUTSIDE RECORDS SUMMARY | 2024-10-10 13:39 | XMS_ITS | Referral Summary ---
Author Organization [facility] D Address [address] [place] [address] Care Team Providers Care Deputy Insurance Commissioner Name Role Phone Keenan Palacios MD Primary Care Provider Otilio Kyle MD Unavailable Allergies No known active allergies Medications levothyroxine (SYNTHROID, LEVOTHROID) 25 mcg tablet Take 25 mcg by mouth daily. Active pantoprazole DR (PROTONIX) 40 mg EC tablet Take 40 mg by mouth daily PRN Active zoledronic acid 4 mg/5 mL injection Ac tive cholecalciferol (VITAMIN D-3) 5,000 unit capsule Active Nystop powder 07/03/2020 Activ e losartan (COZAAR) 100 mg tablet Take 1 tablet (100 mg total) by mouth daily 90 tablet 3 07/14/2021 Active amLODIPine (NORVASC) 5 mg tabletIndications :Essential hypertension TAKE ONE TABLET BY MOUTH DAILY 30 tablet 09/04/2022 Active metoprolol tartrate (LOPRESSOR) 25 mg immediate release tablet TAKE ONE TABLET BY MOUTH TWICE A DAY 60 tablet 09/04/2022 Active rosuvastatin (Crestor) 10 mg tablet Take 1 tablet (10 mg total) by mouth daily 90 tablet 3 10/05/2022 Active Active Problems Problem Noted Date Diagnosed Date Bradycardia 07/17/2019 Assessment & Plan (07/17/2019 9:53 AM CDT): Bradycardia persists despite decreasing metoprolol to 50 mg b.i.d.. Will decrease further to 25 mg b.i.d. And have her report back her heart rates in a couple of weeks. Obstructive sleep apnea syndrome 07/17/2019 Assessment & Plan (07/17/2021 7:04 PM CDT): She has apparently had a home study the results of which she has not heard. Encouraged her to call her primary care physician for these results. Assessment & Plan (07/17/2019 9:55 AM CDT): This is likely the cause of her fatigue and may be contributing to her blood pressure. It is unfortunate that she did not tolerate treatment. Her primary care physician has recommended retesting. Will refer to Dr. Duarte. Essential hypertension 07/05/2018 Assessment & Plan (07/17/2021 7:03 PM CDT): Blood pressure is not controlled. Will increase losartan to 100 mg daily. She is to update me on blood pressure readings in two weeks. Assessment & Plan (07/09/2020 9:28 AM CDT): Blood pressure is high today in the setting of having missed her metoprolol last night. Home blood pressures have been running normal when she takes her medicine. Will continue current medications. Assessment & Plan (07/17/2019 9:53 AM CDT): Not unexpectedly, blood pressure is high with decrease in her metoprolol dosage. She has a history of LONNIE-inhibitor cough. Will begin losartan 50 mg daily and have her report blood pressures in a week. Assessment & Plan (07/05/2018 1:20 PM CDT): Blood pressure is adequately controlled on current regimen. No change was made. Pure hypercholesterolemia 07/05/2018 Assessment & Plan (07/17/2021 7:04 PM CDT): Point of care testing today shows LDL 102. She is currently on Lipitor 20 mg daily. Continue Lipitor. Intensify dietary efforts. Assessment & Plan (07/09/2020 9:28 AM CDT): On chronic lipid lowering therapy with good control. No changes made. Assessment & Plan (07/17/2019 9:54 AM CDT): On chronic lipid lowering therapy with good control. No changes made. Assessment & Plan (07/05/2018 1:21 PM CDT): On chronic lipid lowering therapy with good control. No changes made. She was reminded to get her lipids checked for her primary care physician, with results forwarded to me. Social History Tobacco Use Types Packs/Day Years Used Date Smoking Tobacco: Never Smokeless Tobacco: Never Alcohol Use Standard Drinks/Week Comments Yes 0 (1 standard drink = 0.6 oz pur e alcohol) Comments Unknown Sex and Gender Information Value Date Recorded Sex Assigned at Not on file Legal Sex Female 10:22 AM DRINK MIXER Gender Identity Not on file Sexual Orientation Not on file Last Filed Vital Signs Vital Sign Reading Time Taken Comments Blood Pressure 130/76 10/05/2022 1:28 PM DRINK MIXER Pulse 75 10/05/2022 1:28 PM DRINK MIXER Temperature - - Respiratory Rate - - Oxygen Saturation 95% 10/05/2022 1:28 PM DRINK MIXER Inhaled Oxygen Concentration - - Weight 67.9 kg (149 lb 9.6 oz) 10/05/2022 1:28 P M DRINK MIXER Height 158 cm (5' 2.21 ) 10/05/2022 1:28 PM DRINK MIXER Body Mass Index 27.18 10/05/2022 1:28 PM DRINK MIXER Plan of Treatment Not on file Procedures Procedure Name Priority Date/Time Associated Diagnosis Comments SCREENING MAMMOGRAM BILATERAL W YUAN Schedule Routine, Read Routine (OP Routine) 01/07/2021 1:50 PM CDT Encounter for screening mammogram for malignant neoplasm of breast from Last 3 Months or Most Recently Relevant to Health Maintenance Results * Screening Mammogram Bilateral W Yuan (01/07/2021 1:50 PM CDT) Anatomical Region Laterality Modality Breast Bilateral Mammography Narrative 01/12/2021 4:04 PM CDT Mammogram Technique: Bilateral Digital Breast Tomosynthesis, Bilateral C-view 2D Screening mammogram. ??Views obtained: ??bilateral craniocaudal and bilateral mediolateral oblique. ??Computer Aided Detection was performed. Mammogram Findings: The present examination has been compared to prior imaging studies performed at [facility] on 10/01/2017, 10/08/2018 and 11/20/2019. The breasts are almost entirely fatty. There is no suspicious abnormality in either breast. Impression: There is no mammographic evidence of malignancy. Annual screening mammography is recommended. OVERALL FINAL ASSESSMENT: BI-RADS CATEGORY 1: ??Negative. Procedure Note Ana Garcia MD - 01/12/2021 Mammogram Technique: Bilateral Digital Breast Tomosynthesis, Bilateral C-view 2D Screening mammogram. Views obtained: bilateral craniocaudal and bilateral mediolateral oblique. Computer Aided Detection was performed. Mammogram Findings: The present examination has been compared to prior imaging studies performed at [facility] on 10/01/2017, 10/08/2018 and 11/20/2019. The breasts are almost entirely fatty. There is no suspicious abnormality in either breast. Impression: There is no mammographic evidence of malignancy. Annual screening mammography is recommended. OVERALL FINAL ASSESSMENT: BI-RADS CATEGORY 1: Negative. us Self Screening Mammogram IMG MAMMO PROCEDURES Fi nal Result from Last 3 Months or Most Recently Relevant to Health Maintenance Insurance [facility] MEDICARE [facility] CHOICE PLUS [facility] HMO/PPO Address: [address] [address] [place] [address] [facility] Care Teams Deputy Insurance Commissioner Relationship Specialty Start Date End Date Keenan Palacios MD [address] [place] [address] PCP - General 05/25/16 Otilio Kyle MD [address] [place], [place] [id number] Consulting Physician Cardiology 07/10/22
--- OUTSIDE RECORDS SUMMARY | 2024-10-10 13:39 | XMS_ITS | CONTINUITY OF CARE DOCUMENT ---
Author Name marvin wong Address Unknown Organization [facility] Address [address] [place] [address] Phone [phone] Care Team Providers Care Electrical Prospecting Operator Name Role Phone marvin wong Unavailable Unavailable INSURANCE PROVIDERS Payer name Policy type / Coverage type [place] red constitution party ID [employer] PPO Other [id number]
--- OUTSIDE RECORDS SUMMARY | 2024-10-10 13:39 | XMS_ITS | Continuity of Care Document ---
Author Organization [facility] Address [address] [place] [address] Phone Care Team Providers Care Cost And Risk Analysis Manager Name Role Phone Janes, Edward Unavailable Unavailable Advance Directives Directive Yes / No Effective Date File Name No Information Encounters Encounter Description Practice Location Reason(s) For Visit Diagnoses Date Provider Providers Copied on Encounter [facility], [address], [place], [place], [id number], [place] tel:[phone] [facility] No Information 2 Doisy Edward. [address] , [address], [place], [address], [place]. tel:[phone] Family History Family Member Type Diagnosis Age At Onset No Information Payers Payer name Insurance type Covered democrat ID Authoriza tion(s) [employer] SOI CI [id number] Social History Type Description Quantity Date Captured [...]
--- OUTSIDE RECORDS SUMMARY | 2024-10-10 13:39 | XMS_ITS | Clinical Summary ---
Author Organization [facility] D Address [address] [place] [address] Care Team Providers Care Venue Manager Name Role Phone Keenan Palacios MD Primary Care Provider [phone] Otilio Kyle MD Unavailable [phone] Allergies No known active allergies Medications levothyroxine [...] care physician, with results forwarded to me. Medical History Medical History Date Comments Hypertension Hypertension Family History Medical History Relation Name Comments Stroke Father Heart attack Maternal Grandfather Heart attack Mother Heart attack Other 1 Family history of Myocardial infarction; Coronary artery disease Other 2 Fami ly history of Coronary artery disease; Relation Name Status Comments Father Maternal Grandfather Mother Other 1 Other 2 Social History Tobacco Use Types Packs/Day Years Used Date Smoking Tobacco: Never Smokeless Tobacco: Never Alcohol Use Standard Drinks/Week Comments Yes 0 (1 standard drink = 0.6 oz pur e alcohol) Comments Unknown Sex and Gender Information Value Date Recorded Sex Assigned at Not on file Legal Sex Female 10:22 AM SHIPFITTER Gender Identity Not on file Sexual Orientation Not on file Obstetrics History Last Filed Vital Signs Vital Sign Reading Time Taken Comments Blood Pressure 130/76 10/05/2022 1:28 PM SHIPFITTER Pulse 75 10/05/2022 1:28 PM SHIPFITTER Temperature - - Respiratory Rate - - Oxygen Saturation 95% 10/05/2022 1:28 PM SHIPFITTER Inhaled Oxygen Concentration - - Weight 67.9 kg (149 lb 9.6 oz) 10/05/2022 1:28 P M SHIPFITTER Height 158 cm (5' 2.21 ) 10/05/2022 1:28 PM SHIPFITTER Body Mass Index 27.18 10/05/2022 1:28 PM SHIPFITTER Plan of Treatment Health Maintenance Due Date Last Done Comments Colon Cancer Screening-Colonoscopy 1955 Depression Screening 1955 Fall Risk Assessment 1955 Hepatitis C Screening 1955 Osteoporosis Screening-Bone Density Scan 1955 Hepatitis B Screening 1973 Zoster Vaccine (3 of 3) 06/10/2019 04/15/2019, 09/13 Pneumococcal vaccine 65+ (2 of 2 - PPSV23 or PCV20) 2020 04/09/2018 Well Visit 65+ 2020 Breast Cancer Screening-Mammogram 01/07/2022 01/07/2021, 11/20/2019, 10/08/2018, Additional history exists Influenza Vaccine (#1) 2024 08/13/2013, 2012 DTaP/Tdap/Td Vaccine (2 - Td or Tdap) 04/01/2028 04/01/2018 Procedures Procedure Name Priority Date/Time Associated Diagnosis [...] compared to prior imaging studies performed at [facility] on 10/01/2017, 10/08/2018 and 11/20/2019. The breasts [...] compared to prior imaging studies performed at [facility] on 10/01/2017, 10/08/2018 and 11/20/2019. The breasts are almost entirely fatty. There is no suspicious abnormality in either breast. Impression: There is no mammographic evidence of malignancy. Annual screening mammography is recommended. OVERALL FINAL ASSESSMENT: BI-RADS CATEGORY 1: Negative. us Self Screening Mammogram IMG MAMMO PROCEDURES Fi nal Result from Last 3 Months or Most Recently Relevant to Health Maintenance Insurance [employer] [place] MEDICARE [facility] CHOICE PLUS [facility] Care Teams Venue Manager Relationship Specialty Start Date End Date Keenan Palacios MD [address] [place] [address] PCP - General 05/25/16 Otilio Kyle MD [address] [place], [place] [id number] Consulting Physician Cardiology 07/10/22
== END 2024-10-10 13:36 | disposition home or self-care (01) ==
LOC: CHSIMG 13:36
PROVIDERS: PCP Internal Medicine; Visit Provider Orthopaedic Surgery
DX: S82.841A Displaced bimalleolar fracture of right lower leg, initial encounter for closed fracture (principal)
CPT/HCPCS: 73610

== ENCOUNTER 2024-10-24 13:34 | Outpatient (CLI) | payer OTHER, SELFPAY ==
--- NOTE | ~2024-10-24 | XR_ITS ---
EXAMINATION: XR ankle RT min 3V DATE: 10/24/2024 13:50 INDICATION: Right ankle fracture. TECHNIQUE: 3 views of right ankle were obtained. COMPARISON: Right ankle radiographs 09/09/2025, 09/27/24 FINDINGS: There is a comminuted fracture of distal fibula including oblique fracture component with m edial aspect of the fracture line 5 mm distal to the level of the tibial plafond and 1 mm posterolate ral displacement of the distal fracture fragment. There is a nondisplaced avulsion fracture component at the distal tip of fibula. There is a transverse fracture of medial malleolus in near-anatomic ali gnment. There is an osteochondral lesion of medial talar dome. There are enthesophytes at the posteri or and plantar aspects of calcaneal tuberosity. Ankle soft tissue swelling is noted. IMPRESSION: 1. Unchanged fractures of medial and lateral malleoli. 2. Osteochondral lesion of medial talar dome. Reviewed, dictated and finalized at location A. HANDLER
--- OUTSIDE RECORDS SUMMARY | 2024-10-24 13:39 | XMS_ITS | Continuity of Care Document ---
Author Organization [facility] Address [address] [place] [address] Phone Care Team Providers Care Shell Mold Bonding Machine Operator Name Role Phone Janes, Edward Unavailable Unavailable Advance Directives Directive Yes / No Effective Date File Name No Information Encounters Encounter Description Practice Location Reason(s) For Visit Diagnoses Date Provider Providers Copied on Encounter [facility], [address], [place], [place], [id number], [place] tel:[phone] [facility] No Information 2 Doisy Edward. [address] , [address], [place], [address], [place]. tel:[phone] Family History Family Member Type Diagnosis Age At Onset No Information Payers Payer name Insurance type Covered democrat ID Authoriza tion(s) [employer] SOI CI [id number] Social History Type Description Quantity Date Captured [...]
--- OUTSIDE RECORDS SUMMARY | 2024-10-24 13:39 | XMS_ITS | Clinical Summary ---
Author Organization [email or web address] Address [address] [place] [address] Care Team Providers Care Drilling Manager Name Role Phone Keenan Palacios MD Primary Care Provider [phone] Source Comments [email or web address],non-owned Affiliates and Associated Physician Practices is amultiple site organization consisting of ambulatory clinics and hospital sitesin [place], [place], [place] and [place]. This disclosure is being madepursuant to the Care Everywhere program and may not contain all information available regarding this patient. Last updated 18.[email or web address] Allergies No known active allergies Medications * Be aware that medications may not be up to date on this document. Alwaysverify current medications with the patient. Medication Sig Dispensed Refills Start Date End Date Status metoprolol tartrate IR (LOPRESSOR) 100 MG tablet Take 100 mg by mouth 2 times daily. Active [id number] ITAMIN D PO Take by mouth. Calcium [...] 61 05/16/2011 7:50 AM CDT Temperature 36.7 C (98.1 F) 05/16/2011 12:10 PM CDT Respiratory Rate 18 05/16/2011 12:10 PM CDT [...] 12:38 PM 05/17/2011 5:10 AM Care Teams Drilling Manager Relationship Specialty Start Date End Date Keenan Palacios MD [address] [place] [address] PCP - General 07/26/21
--- OUTSIDE RECORDS SUMMARY | 2024-10-24 13:40 | XMS_ITS | Encounter Summary ---
Author Organization [facility] Address [address] [place] [address] Care Team Providers Care C Unix Developer Name Role Phone Keenan Palacios MD Primary Care Provider [phone] Encounter Details Date Type Department Care Team (Late st Contact Info) Description 07/18/2023 Lab Requisition [facility] - DermPath Lab [address] [place] [address] Alejandra Gilbert MD [address] [place] [address] Social History Tobacco Use Types Packs/Day Years [...] 10:07 AM CDT) Case Report Dermatopathology Report Case: [id number] Authorizing Provider: Alejandra Gilbert MD Collected: 07/18/2023 10:07 AM Ordering Location: [facility] DermPath Lab Received: 07/19/2023 06:01 AM Pathologist: Jennie Guzman MD Specimen: Skin, left forearm 2:59 PM CDT DERMATOPATHOLOGY LABORATORY Final Diagnosis Specimen A. 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 The specimen consists of a shave biopsy measuring 6x5x1 mm. Jar 0. 2:59 PM CDT DERMATOPATHOLOGY LABORATORY Microscopic Description Specimen A. SKIN, left forearm: The epidermis shows parakeratosis, full thickness disorderly maturation of keratinocytes, mitoses at different levels, and dyskeratotic cells. Additionally, there is focal parakeratosis. The lower half of the epidermis shows disorderly maturation of keratinocytes with nuclear pleomorphism. 2:59 PM CDT DERMATOPATHOLOGY LABORATORY Disclaimer An external and internal positive and negative controls are appropriate for the histochemical, immunohistochemical and immunofluorescence stain(s) in this case (if any), except where stated explicitly. The performance characteristics of the stain(s) cited in this report were developed and its performance characteristic determined by the Dermatopathology Laboratory at [facility], directed by Dr. Mimi Briseno. These tests need not be, and therefore are not, approved by the [place] Food and Drug Administration. The tests are used for clinical purposes. Billing Codes Specimen Charges Stain Charges 70502 1 3 2:59 PM CDT DERMATOPATHOLOGY LABORATORY Embedded Images 3 2:59 PM CDT DERMATOPATHOLOGY LABORATORY Pathology/Cytolo gy TISSUE SPECIMEN FROM SKIN / Unknown 07/18/2023 10:07 AM CDT 07/19/2023 6:01 AM CDT Alejandra Gilbert MD LAB - PATHOLOGY/CYTO LOGY ORDERABLES DERMATOPATHOLOGY LABORATORY [facility] - Department of Dermatology [facility] [address] [phone] documented in this encounter Visit Diagnoses Not on filedocumented in this encounter Care Teams C Unix Developer Relationship Specialty Start Date End Date Keenan Palacios MD [address] [place] [id number] PCP - General 07/26/21 documented as of this encounter
--- OUTSIDE RECORDS SUMMARY | 2024-10-24 13:40 | XMS_ITS | Encounter Summary ---
Author Organization [facility] Address [address] [place] [address] Care Team Providers Care Injection Molding Operator Name Role Phone Keenan Palacios MD Primary Care Provider [phone] Encounter Details Date Type Department Care Team (Late st Contact Info) Description 09/05/2023 Lab Requisition [facility] - DermPath Lab [address] [place] [address] Alejandra Gilbert MD [address] [facility] [facility] [address] [place] [address] Social History Tobacco Use Types Packs/Day Years [...] Diagnosis Comments DERMATOPATHOLOGY Routine 09/05/2023 9:11 AM TRADER documented in this encounter Results * DERMATOPATHOLOGY (09/05/2023 9:11 AM TRADER) Case Report Dermatopathology Report Case: [id number] Authorizing Provider: Alejandra Gilbert MD Collected: 09/05/2023 09:11 AM Ordering Location: [facility] DermPath Lab Received: 09/05/2023 02:08 PM Pathologist: Jennie Guzman MD Specimen: Skin, left FA 1:08 PM [facility] DERMATOPATHOLOGY LABORATORY Final Diagnosis Specimen A. SKIN, left FA: DERMAL SCAR RESIDUAL SQUAMOUS CELL CARCINOMA NOT IDENTIFIED (L90.5) BENIGN VERRUCOUS KERATOSIS (L82.1) 1:08 PM [facility] DERMATOPATHOLOGY LABORATORY Clinical History SCCIS 1:08 PM [facility] DERMATOPATHOLOGY LABORATORY Gross Description Specimen A: Received is one formalin filled container labeled with the patient's name and designated left FA. The specimen consists of a non-oriented ellipse of skin measuring 97i99u8 mm. The margin is inked green. The 12 o'clock and 6 o'clock tips are submitted in cassette 1. The remainder of the ellipse is serially sectioned and submitted in cassette 2 - 3. Jar 0. 1:08 PM [facility] DERMATOPATHOLOGY LABORATORY Microscopic Description Specimen A. [...] a verruca vulgaris or a seborrheic keratosis. 1:08 PM [facility] DERMATOPATHOLOGY LABORATORY Disclaimer An external and internal positive and negative controls are appropriate for the histochemical, immunohistochemical and immunofluorescence stain(s) in this case (if any), except where stated explicitly. The performance characteristics of the stain(s) cited in this report were developed and its performance characteristic determined by the Dermatopathology Laboratory at [facility], directed by Dr. Mimi Briseno. These tests need not be, and therefore are not, approved by the [place] Food and Drug Administration. The tests are used for clinical purposes. Billing Codes Specimen Charges Stain Charges 52477 1 1:08 PM [facility] DERMATOPATHOLOGY LABORATORY Embedded Images 1:08 PM [facility] DERMATOPATHOLOGY LABORATORY Pathology/Cytolo gy TISSUE SPECIMEN FROM SKIN / Unknown 09/05/2023 9:11 AM TRADER 09/05/2023 2:08 PM TRADER Alejandra Gilbert MD LAB - PATHOLOGY/CYTO LOGY ORDERABLES DERMATOPATHOLOGY LABORATORY [facility] - Department of Dermatology [address] [phone] documented in this encounter Visit Diagnoses Not on filedocumented in this encounter Care Teams Injection Molding Operator Relationship Specialty Start Date End Date Keenan Palacios MD [address] [place] [address] PCP - General 07/26/21 documented as of this encounter
--- OUTSIDE RECORDS SUMMARY | 2024-10-24 13:40 | XMS_ITS | CONTINUITY OF CARE DOCUMENT ---
Author Name marvin wong Address Unknown Organization [facility] Address [address] [place] [address] Phone [phone] Care Team Providers Care Tool Lathe Operator Name Role Phone marvin wong Unavailable Unavailable INSURANCE PROVIDERS Payer name Policy type / Coverage type [place] red republican ID [employer] PPO Other [id number]
--- OUTSIDE RECORDS SUMMARY | 2024-10-24 13:40 | XMS_ITS | Patient Health Summary ---
Author Organization [facility] Address [address] [place] [address] Care Team Providers Care Shingle Cutter Name Role Phone Keenan Palacios MD Primary Care Provider [phone] Note from [facility],non-owned Affiliates and Associated Physician Practices is amultiple site organization consisting of ambulatory clinics and hospital sitesin [place], [place], [place] and [place]. This disclosure is being madepursuant to the Care Everywhere program and may not contain all information available regarding this patient. Last updated 18.[facility] Allergies No known active allergies Medications * Be aware that medications may not be up to date on this document. Alwaysverify current medications with the patient. * metoprolol tartrate IR (LOPRESSOR) 100 MG tablet Take 100 mg by mouth 2 times daily. * RIPKUUL-[id number]-VRXNDIP D PO Take by mouth. Calcium 630/Vit [...] 08/28/2005) Results * DERMATOPATHOLOGY (09/05/2023 9:11 AM CUSTOMER CARE VOICE CONSULTANT) Only the most recent of4 resultswithin the time period is included. Case Report Dermatopathology Report Case: [id number] Authorizing Provider: Alejandra Gilbert MD Collected: 09/05/2023 09:11 AM Ordering Location: [facility] DermPath Lab Received: 09/05/2023 02:08 PM Pathologist: Jennie Guzman MD Specimen: Skin, left FA 1:08 PM CUSTOMER CARE VOICE CONSULTANT DERMATOPATHOLOGY LABORATORY Final Diagnosis Specimen A. 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 The specimen consists of a non-oriented ellipse of skin measuring 45a11i7 mm. The margin is inked green. The 12 o'clock and 6 o'clock tips are submitted in cassette 1. The remainder of the ellipse is serially sectioned and submitted in cassette 2 - 3. Jar 0. 3 1:08 PM [facility] DERMATOPATHOLOGY LABORATORY Microscopic Description Specimen A. [...] or a seborrheic keratosis. 3 1:08 PM [facility] DERMATOPATHOLOGY LABORATORY Disclaimer An external and internal positive and negative controls are appropriate for the histochemical, immunohistochemical and immunofluorescence stain(s) in this case (if any), except where stated explicitly. The performance characteristics of the stain(s) cited in this report were developed and its performance characteristic determined by the Dermatopathology Laboratory at [facility], directed by Dr. Mimi Briseno. These tests need not be, and therefore are not, approved by the [place] Food and Drug Administration. The tests are used for clinical purposes. Billing Codes Specimen Charges Stain Charges 66837 1 3 1:08 PM [facility] DERMATOPATHOLOGY LABORATORY Embedded Images 3 1:08 PM [facility] DERMATOPATHOLOGY LABORATORY Pathology/Cytolo gy TISSUE SPECIMEN FROM SKIN / Unknown 09/05/2023 9:11 AM CUSTOMER CARE VOICE CONSULTANT 09/05/2023 2:08 PM [facility] Alejandra Gilbert MD LAB - PATHOLOGY/CYTO LOGY ORDERABLES DERMATOPATHOLOGY LABORATORY [facility] - Department of Dermatology [address], [address] [phone] * LAB RESULTS ORDER (05/17/2011 5:07 PM CDT) Narrative Transcriptions Document, Scanned - 05/17/2011 5:07 PM CDT Scanned Document LAB - THERAPEUTIC DR ALEKSEY MONITORING ORDERABLES * IMAGING/RADIOLOGY/XRAY RESULTS ORDER (05/17/2011 [...] CDT) Hemoglobin 12.1 12.0 - 16.0 gm/dl [facility] Hematocrit 35.9(L) 36.0 - 48.0 % [facility] BLOOD SPECIMEN / Unknown 05/16/2011 4:30 AM CDT 05/16/2011 4:53 AM CDT Yaquelin Izquierdo MD LAB - HEMATOLOG Y ORDERABLES [facility] [address] [place] [address] * TYPE + SCREEN PANEL (05/15/2011 11:03 AM CDT) ABO Rh A Pos [facility] Antibody Screen Neg Negative [facility] BLOOD SPECIMEN / Unknown 05/15/2011 11:03 AM CDT 05/15/2011 11:32 AM CDT Yaquelin Izquierdo MD LAB - BLOOD BAN K ORDERABLES [facility] [address] [place] [address] * GROSS + MICRO EXAM (08/28/2005 3:46 PM CUSTOMER CARE VOICE CONSULTANT) Result CASE NUMBER [id number] Comment: ORDERING PHYSICIAN OSMAN RIZVI SPECIMEN TYPE Colon Biopsy-right and left Date 08/28/2005 Physician Kelsey Gross Description The specimen is received in two Formalin filled containers labeled with the patient's name, Sepdieh Ratliff. 1) The first container is labeled right colon. It consists of irregular spears fragments of tissue measuring 0.3 x 0.3 x 0.2 cm in aggregate. It is submitted entirely in cassette A. 2) The second container is labeled left colon. It consists of irregular spears fragments of tissue measuring 0.3 x 0.3 x 0.3 cm in aggregate. It is submitted entirely in cassette B. SK/tellez Microscopic Exam Specimen #'s 1 and 2 sections show fragments of colonic mucosa with unremarkable histology. The surface epithelium and crypts are normal. The lamina propria shows the usual number of chronic inflammatory cells. Acute inflammation is not seen. There is no evidence of atypia or malignancy. MC/na Diagnosis I. Right colon, biopsy -- No pathologic diagnosis II. Left colon, biopsy -- No pathologic diagnosis MC/na Client Server Developer na Pathologist Ankita Stewart M.D. Snomed. 08/29/2005 0944 <2> CPT code 65975r9 MISCELLANEOUS SAMPLES / Unknown 08/28/2005 3:46 PM CUSTOMER CARE VOICE CONSULTANT 08/28/2005 3:46 PM CUSTOMER CARE VOICE CONSULTANT Historical Provider LAB - PATHOLOGY/C YTOLOGY ORDERABLES Care Teams Shingle Cutter Relationship Specialty Start Date End Date Keenan Palacios MD [address] [place] [address] PCP - General 07/26/21
--- OUTSIDE RECORDS SUMMARY | 2024-10-24 13:40 | XMS_ITS | Clinical Summary ---
Author Organization [facility] Address [address] [place] [address] Care Team Providers Care Residential Care Facility Manager Name Role Phone Keenan Palacios MD Primary Care Provider Otilio Kyle MD Unavailable [phone] Allergies No known active allergies Medications levothyroxine [...] on file Legal Sex Female 10:22 AM AUTOMOTIVE GLASS MECHANIC Gender Identity Not on file Sexual Orientation Not on file Obstetrics History Last Filed Vital Signs Vital Sign Reading Time Taken Comments Blood Pressure 130/76 10/05/2022 1:28 PM AUTOMOTIVE GLASS MECHANIC Pulse 75 10/05/2022 1:28 PM AUTOMOTIVE GLASS MECHANIC Temperature - - Respiratory Rate - - Oxygen Saturation 95% 10/05/2022 1:28 PM AUTOMOTIVE GLASS MECHANIC Inhaled Oxygen Concentration - - Weight 67.9 kg (149 lb 9.6 oz) 10/05/2022 1:28 P M AUTOMOTIVE GLASS MECHANIC Height 158 cm (5' 2.21 ) 10/05/2022 1:28 PM AUTOMOTIVE GLASS MECHANIC Body Mass Index 27.18 10/05/2022 1:28 PM AUTOMOTIVE GLASS MECHANIC Plan of Treatment Health Maintenance Due Date [...] compared to prior imaging studies performed at [facility] on 10/01/2017, 10/08/2018 and 11/20/2019. The breasts are almost entirely fatty. There is no suspicious abnormality in either breast. Impression: There is no mammographic evidence of malignancy. Annual screening mammography is recommended. OVERALL FINAL ASSESSMENT: BI-RADS CATEGORY 1: Negative. Procedure Note Ana Garcia MD - 01/12/2021 Mammogram Technique: Bilateral Digital Breast Tomosynthesis, Bilateral C-view 2D Screening mammogram. Views obtained: bilateral craniocaudal and bilateral mediolateral oblique. Computer Aided Detection was performed. Mammogram Findings: The present examination has been compared to prior imaging studies performed at [facility] on 10/01/2017, 10/08/2018 and 11/20/2019. The breasts are almost entirely fatty. There is no suspicious abnormality in either breast. Impression: There is no mammographic evidence of malignancy. Annual screening mammography is recommended. OVERALL FINAL ASSESSMENT: BI-RADS CATEGORY 1: Negative. us Self Screening Mammogram IMG MAMMO PROCEDURES Fi nal Result from Last 3 Months or Most Recently Relevant to Health Maintenance Insurance [employer] [place] MEDICARE [facility] CHOICE PLUS [facility] Care Teams Residential Care Facility Manager Relationship Specialty Start Date End Date Keenan Palacios MD [address] [place] [address] PCP - General 05/25/16 Otilio Kyle MD [address] [place], [place] [phone] Consulting Physician Cardiology 07/10/22
--- OUTSIDE RECORDS SUMMARY | 2024-10-24 13:40 | XMS_ITS | Referral Summary ---
Author Organization [facility] Address [address] [place] [address] Care Team Providers Care Family Dentist Name Role Phone Keenan Palacios MD Primary Care Provider [phone] Otilio Kyle MD Unavailable Allergies No known [...] on file Legal Sex Female 10:22 AM PICU NURSE Gender Identity Not on file Sexual Orientation Not on file Last Filed Vital Signs Vital Sign Reading Time Taken Comments Blood Pressure 130/76 10/05/2022 1:28 PM PICU NURSE Pulse 75 10/05/2022 1:28 PM PICU NURSE Temperature - - Respiratory Rate - - Oxygen Saturation 95% 10/05/2022 1:28 PM PICU NURSE Inhaled Oxygen Concentration - - Weight 67.9 kg (149 lb 9.6 oz) 10/05/2022 1:28 P M PICU NURSE Height 158 cm (5' 2.21 ) 10/05/2022 1:28 PM PICU NURSE Body Mass Index 27.18 10/05/2022 1:28 PM PICU NURSE Plan of Treatment Not on file Procedures [...] compared to prior imaging studies performed at [facility] on 10/01/2017, 10/08/2018 and 11/20/2019. The breasts [...] compared to prior imaging studies performed at [facility] on 10/01/2017, 10/08/2018 and 11/20/2019. The breasts are almost entirely fatty. There is no suspicious abnormality in either breast. Impression: There is no mammographic evidence of malignancy. Annual screening mammography is recommended. OVERALL FINAL ASSESSMENT: BI-RADS CATEGORY 1: Negative. us Self Screening Mammogram IMG MAMMO PROCEDURES Fi nal Result from Last 3 Months or Most Recently Relevant to Health Maintenance Insurance [facility] MEDICARE [facility] CHOICE PLUS [facility] Care Teams Family Dentist Relationship Specialty Start Date End Date Keenan Palacios MD [address] [place] [address] PCP - General 05/25/16 Otilio Kyle MD [address] [place], [place] [phone] Consulting Physician Cardiology 07/10/22
--- OUTSIDE RECORDS SUMMARY | 2024-10-24 13:40 | XMS_ITS | Referral Summary ---
Author Organization [facility] Address [address] [place] [address] Care Team Providers Care Plumber Supervisor Name Role Phone Keenan Palacios MD Primary Care Provider [phone] Source Comments [facility],non-owned Affiliates and Associated Physician Practices is amultiple site organization consisting of ambulatory clinics and hospital sitesin [place], [place], [place] and [place]. This disclosure is being madepursuant to the Care Everywhere program and may not contain all information available regarding this patient. Last updated 18.[facility] Allergies No known active allergies Medications * Be aware that medications may not be up to date on this document. Alwaysverify current medications with the patient. Medication Sig Dispensed Refills Start Date End Date Status metoprolol tartrate IR (LOPRESSOR) 100 MG tablet Take 100 mg by mouth 2 times daily. Active [id number]-F ITAMIN D PO Take by mouth. Calcium [...] 12:38 PM 05/17/2011 5:10 AM Care Teams Plumber Supervisor Relationship Specialty Start Date End Date Keenan Palacios MD [address] [place] [address] PCP - General 07/26/21
== END 2024-10-24 13:35 | disposition home or self-care (01) ==
LOC: CHSIMG 13:37
PROVIDERS: PCP Internal Medicine; Visit Provider Orthopaedic Surgery
DX: S82.841D Displaced bimalleolar fracture of right lower leg, subsequent encounter for closed fracture with routine healing (principal)
CPT/HCPCS: 73610

== ENCOUNTER 2024-11-07 14:38 | Outpatient (CLI) | payer OTHER, SELFPAY ==
--- NOTE | ~2024-11-07 | XR_ITS ---
EXAMINATION: XR ankle RT min 3V DATE: 11/07/2024 14:57 INDICATION: Displaced bimalleolar fracture of right lower leg. TECHNIQUE: 3 views of right ankle were obtained. COMPARISON: Right ankle radiographs 10/24/24 FINDINGS: There is a comminuted fracture of lateral malleolus with medial aspect of the proximal frac ture line at the level of the tibial plafond. The main distal fracture fragment demonstrates 1 mm pos terolateral displacement. There is a transverse fracture of medial malleolus in near-anatomic alignme nt. There is an osteochondral lesion of medial talar dome. There is an enthesophyte at plantar aspect of calcaneal tuberosity. IMPRESSION: 1. Unchanged fractures of medial and lateral malleoli. 2. Osteochondral lesion of medial talar dome. Reviewed, dictated and finalized at location A. APHONE TRANSCRIBER
--- OUTSIDE RECORDS SUMMARY | 2024-11-07 14:41 | XMS_ITS | Referral Summary ---
Author Organization [facility] Address [address] [place] [address] Care Team Providers Care Bench Boring Machine Operator Name Role Phone Keenan Palacios MD Primary Care Provider [phone] Source Comments [facility] [facility],non-owned Affiliates and Associated Physician Practices is amultiple site organization consisting of ambulatory clinics and hospital sitesin [place], [place], [place] and [place]. This disclosure is being madepursuant to the Care Everywhere program and may not contain all information available regarding this patient. Last updated 18.[facility] Allergies No known active allergies Medications * Be aware that medications may not be up to date on this document. Alwaysverify current medications with the patient. Medication Sig Dispensed Refills Start Date End Date Status metoprolol tartrate IR (LOPRESSOR) 100 MG tablet Take 100 mg by mouth 2 times daily. Active [id number]-[id number]-F ITAMIN D PO Take by mouth. Calcium [...] 12:38 PM 05/17/2011 5:10 AM Care Teams Bench Boring Machine Operator Relationship Specialty Start Date End Date Keenan Palacios MD [address] [place] [address] PCP - General 07/26/21
--- OUTSIDE RECORDS SUMMARY | 2024-11-07 14:41 | XMS_ITS | Continuity of Care Document ---
Author Organization [facility] Address [address] [facility] [address] [place] [address] Phone Care Team Providers Care Director Veterinary Name Role Phone Janes, Edward Unavailable Unavailable Advance Directives Directive Yes / No Effective Date File Name No Information Encounters Encounter Description Practice Location Reason(s) For Visit Diagnoses Date Provider Providers Copied on Encounter [facility], [address], [place], [place], [id number], [place] tel:[phone] [facility] No Information 2 Doisy Edward. [address] , [address], [place], [address], [place]. tel:[phone] Family History Family Member Type Diagnosis Age At Onset No Information Payers Payer name Insurance type Covered constitution party ID Authoriza tion(s) [employer] SOI CI [id number] Social History Type Description Quantity Date Captured [...]
--- OUTSIDE RECORDS SUMMARY | 2024-11-07 14:41 | XMS_ITS | Encounter Summary ---
Author Organization [facility] Address [address] [place] [address] Care Team Providers Care Ingot Caster Name Role Phone Keenan Palacios MD Primary Care Provider [phone] Encounter Details Date Type Department Care Team (Late st Contact Info) Description 09/05/2023 Lab Requisition [facility] - DermPath Lab [address] [place] [address] Alejandra Gilbert MD [address] [facility] [place] [address] Social History Tobacco Use Types Packs/Day Years [...] Diagnosis Comments DERMATOPATHOLOGY Routine 09/05/2023 9:11 AM LIME VAT TENDER documented in this encounter Results * DERMATOPATHOLOGY (09/05/2023 9:11 AM LIME VAT TENDER) Case Report Dermatopathology Report Case: [id number] Authorizing Provider: Alejandra Gilbert MD Collected: 09/05/2023 09:11 AM Ordering Location: [facility] DermPath Lab Received: 09/05/2023 02:08 PM Pathologist: Jennie Guzman MD Specimen: Skin, left FA 1:08 PM [facility] DERMATOPATHOLOGY LABORATORY Final Diagnosis Specimen A. SKIN, left FA: DERMAL SCAR RESIDUAL SQUAMOUS CELL CARCINOMA NOT IDENTIFIED (L90.5) BENIGN VERRUCOUS KERATOSIS (L82.1) 1:08 PM [facility] DERMATOPATHOLOGY LABORATORY Clinical History SCCIS 1:08 PM [facility] DERMATOPATHOLOGY LABORATORY Gross Description Specimen A: Received is one formalin filled container labeled with the patient's name and designated left FA. The specimen consists of a non-oriented ellipse of skin measuring 88t97m7 mm. The margin is inked green. The 12 o'clock and 6 o'clock tips are submitted in cassette 1. The remainder of the ellipse is serially sectioned and submitted in cassette 2 - 3. Jar 0. 1:08 PM [facility] DERMATOPATHOLOGY LABORATORY Microscopic Description Specimen [...] vulgaris or a seborrheic keratosis. 1:08 PM [facility] DERMATOPATHOLOGY [facility]ORATORY Disclaimer An external and internal positive and negative controls are appropriate for the histochemical, immunohistochemical and immunofluorescence stain(s) in this case (if any), except where stated explicitly. The performance characteristics of the stain(s) cited in this report were developed and its performance characteristic determined by the Dermatopathology Laboratory at [facility], directed by Dr. Mimi Briseno. These tests need not be, and therefore are not, approved by the [place] Food and Drug Administration. The tests are used for clinical purposes. Billing Codes Specimen Charges Stain Charges 38453 1 1:08 PM [facility] DERMATOPATHOLOGY [facility]ATORY Embedded Images 1:08 PM [facility] DERMATOPATH[facility]Y [facility]ORY Pathology/Cytolo gy TISSUE SPECIMEN FROM SKIN / Unknown 09/05/2023 9:11 AM LIME VAT TENDER 09/05/2023 2:08 PM LIME VAT TENDER Alejandra Gilbert MD LAB - PATHOLOGY/CYTO LOGY ORDERABLES DERMATOPATHOLOGY LABORATORY [facility] - Department of Dermatology [address] [phone] documented in this encounter Visit Diagnoses Not on filedocumented in this encounter Care Teams Ingot Caster Relationship Specialty Start Date End Date Keenan Palacios MD [address] [place] [address] PCP - General 07/26/21 documented as of this encounter
--- OUTSIDE RECORDS SUMMARY | 2024-11-07 14:41 | XMS_ITS | Patient Health Summary ---
Author Organization [facility] Address [address] [facility] [place] [address] Care Team Providers Care Rehabilitation Therapy Aide Name Role Phone Keenan Palacios MD Primary Care Provider [phone] Note from [facility],non-owned Affiliates and Associated Physician Practices is amultiple site organization consisting of ambulatory clinics and hospital sitesin [place], [place], [place] and [place]. This disclosure is being madepursuant to the Care Everywhere program and may not contain all information available regarding this patient. Last updated 18.[facility] [facility] Allergies No known active allergies Medications * Be aware that medications may not be up to date on this document. Alwaysverify current medications with the patient. * metoprolol tartrate IR (LOPRESSOR) 100 MG tablet Take 100 mg by mouth 2 times daily. * [id number]-JICMXJIFG-YUSBSOW D PO Take by mouth. Calcium 630/Vit [...] 08/28/2005) Results * DERMATOPATHOLOGY (09/05/2023 9:11 AM TURBINE ATTENDANT) Only the most recent of4 resultswithin the time period is included. Case Report Dermatopathology Report Case: [id number] Authorizing Provider: Alejandra Gilbert MD Collected: 09/05/2023 09:11 AM Ordering Location: [facility] DermPath Lab Received: 09/05/2023 02:08 PM Pathologist: Jennie Guzman MD Specimen: Skin, left FA 1:08 PM TURBINE ATTENDANT DERMATOPATHOLOGY LABORATORY Final Diagnosis Specimen A. SKIN, left FA: DERMAL SCAR RESIDUAL SQUAMOUS CELL CARCINOMA NOT IDENTIFIED (L90.5) BENIGN VERRUCOUS KERATOSIS (L82.1) 3 1:08 PM [facility] DERMATOPATHOLOGY LABORATORY Clinical History SCCIS 3 1:08 PM [facility] DERMATOPATHOLOGY LABORATORY Gross Description Specimen A: Received is one formalin filled container labeled with the patient's name and designated left FA. The specimen consists of a non-oriented ellipse of skin measuring 52m75x4 mm. The margin is inked green. The 12 o'clock and 6 o'clock tips are submitted in cassette 1. The remainder of the ellipse is serially sectioned and submitted in cassette 2 - 3. Jar 0. 3 1:08 PM [facility] DERMATOPATHOLOGY LABORATORY Microscopic Description Specimen A. [...] or a seborrheic keratosis. 3 1:08 PM [facility] DERMATOPATHOLOGY LABORATORY Disclaimer An external and internal positive and negative controls are appropriate for the histochemical, immunohistochemical and immunofluorescence stain(s) in this case (if any), except where stated explicitly. The performance characteristics of the stain(s) cited in this report were developed and its performance characteristic determined by the Dermatopathology Laboratory at [facility], directed by Dr. Mimi Briseno. These tests need not be, and therefore are not, approved by the [place] Food and Drug Administration. The tests are used for clinical purposes. Billing Codes Specimen Charges Stain Charges 67273 1 3 1:08 PM [facility] DERMATOPATHOLOGY LABORATORY Embedded Images 3 1:08 PM [facility] DERMATOPATHOLOGY LABORATORY Pathology/Cytolo gy TISSUE SPECIMEN FROM SKIN / Unknown 09/05/2023 9:11 AM TURBINE ATTENDANT 09/05/2023 2:08 PM [facility] Alejandra Gilbert MD LAB - PATHOLOGY/CYTO LOGY ORDERABLES DERMATOPATHOLOGY LABORATORY [facility] - Department of Dermatology [address] [phone] * LAB RESULTS ORDER (05/17/2011 5:07 PM [...] Izquierdo MD LAB - HEMATOLOG Y ORDERABLES [facility] [address] [place] [address] * TYPE + SCREEN PANEL (05/15/2011 11:03 AM CDT) ABO Rh A Pos [facility] Antibody Screen Neg Negative [facility] BLOOD SPECIMEN / Unknown 05/15/2011 11:03 AM CDT 05/15/2011 11:32 AM CDT Yaquelin Izquierdo MD LAB - BLOOD BAN K ORDERABLES [facility] [address] [place] [address] * GROSS + MICRO EXAM (08/28/2005 3:46 PM TURBINE ATTENDANT) Result [id number] NUMBER [id number] Comment: ORDERING PHYSICIAN OSMAN RIZVI SPECIMEN TYPE Colon Biopsy-right and left Date 08/28/2005 Physician Kelsey Gross Description The specimen is received in two Formalin filled containers labeled with the patient's name, Sepideh Ratliff. 1) The first container is labeled [...] colon, biopsy -- No pathologic diagnosis MC/na Teacher Education Instructor na Pathologist Ankita Stewart M.D. Snomed. 08/29/2005 0944 <2> CPT code 07708c5 MISCELLANEOUS SAMPLES / Unknown 08/28/2005 3:46 PM TURBINE ATTENDANT 08/28/2005 3:46 PM TURBINE ATTENDANT Historical Provider LAB - PATHOLOGY/C YTOLOGY ORDERABLES Care Teams Rehabilitation Therapy Aide Relationship Specialty Start Date End Date Keenan Palacios MD [address] [place] [address] PCP - General 07/26/21
--- OUTSIDE RECORDS SUMMARY | 2024-11-07 14:41 | XMS_ITS | Clinical Summary ---
Author Organization [facility] Address [address] [place] [address] Care Team Providers Care Bucket Wash Operator Name Role Phone Keenan Palacios MD Primary Care Provider [phone] Source Comments [facility],non-owned Affiliates and Associated Physician Practices is amultiple site organization consisting of ambulatory clinics and hospital sitesin [place], [place], [place] and [place]. This disclosure is being madepursuant to the Care Everywhere program and may not contain all information available regarding this patient. Last updated 18.[facility] Allergies No known active allergies Medications * Be aware that medications may not be up to date on this document. Alwaysverify current medications with the patient. Medication Sig Dispensed Refills Start Date End Date Status metoprolol tartrate IR (LOPRESSOR) 100 MG tablet Take 100 mg by mouth 2 times daily. Active [id number]-[id number] ITAMIN D PO Take by mouth. Calcium [...] 12:38 PM 05/17/2011 5:10 AM Care Teams Bucket Wash Operator Relationship Specialty Start Date End Date Keenan Palacios MD [address] [place] [address] PCP - General 07/26/21
--- OUTSIDE RECORDS SUMMARY | 2024-11-07 14:41 | XMS_ITS | Encounter Summary ---
Author Organization [facility] Address [address] [place] [address] Care Team Providers Care Furrier Shop Supervisor Name Role Phone Keenan Palacios MD Primary Care Provider [phone] Encounter Details Date Type Department Care Team (Late st Contact Info) Description 07/18/2023 Lab Requisition [facility] - DermPath Lab [address] [place] [address] Alejandra Gilbert MD [address] [place] [address] Social History Tobacco Use Types Packs/Day Years [...] AM CDT) Case Report Dermatopathology Report Case: [id number] Authorizing Provider: Alejandra Gilbert MD Collected: 07/18/2023 10:07 AM Ordering Location: [facility] DermPath Lab Received: 07/19/2023 06:01 AM Pathologist: Jennie Guzman MD Specimen: Skin, left forearm 2:59 PM CDT DERMATOPATHOLOGY LABORATORY Final Diagnosis Specimen A. 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 Mimi Briseno. These tests need not be, and therefore are not, approved by the [place] Food and Drug Administration. The tests are used for clinical purposes. Billing Codes Specimen Charges Stain Charges 14548 1 3 2:59 PM CDT DERMATOPATHOLOGY LABORATORY Embedded Images 3 2:59 PM CDT DERMATOPATHOLOGY LABORATORY Pathology/Cytolo gy TISSUE SPECIMEN FROM SKIN / Unknown 07/18/2023 10:07 AM CDT 07/19/2023 6:01 AM CDT Alejandra Gilbert MD LAB - PATHOLOGY/CYTO LOGY ORDERABLES DERMATOPATHOLOGY LABORATORY [facility] - Department of Dermatology [facility] [address] [phone] documented in this encounter Visit Diagnoses Not on filedocumented in this encounter Care Teams Furrier Shop Supervisor Relationship Specialty Start Date End Date Keenan Palacios MD [address] [place] [phone] PCP - General 07/26/21 documented as of this encounter
--- OUTSIDE RECORDS SUMMARY | 2024-11-07 14:42 | XMS_ITS | Clinical Summary ---
[facility] Organization [facility] Address [address] [place] [address] Care Team Providers Care Char House Supervisor Name Role Phone Keenan Palacios MD [...] on file Legal Sex Female 10:22 AM QUALITY ASSURANCE LEAD Gender Identity Not on file Sexual Orientation Not on file Obstetrics History Last Filed Vital Signs Vital Sign Reading Time Taken Comments Blood Pressure 130/76 10/05/2022 1:28 PM QUALITY ASSURANCE LEAD Pulse 75 10/05/2022 1:28 PM QUALITY ASSURANCE LEAD Temperature - - Respiratory Rate - - Oxygen Saturation 95% 10/05/2022 1:28 PM QUALITY ASSURANCE LEAD Inhaled Oxygen Concentration - - Weight 67.9 kg (149 lb 9.6 oz) 10/05/2022 1:28 P M QUALITY ASSURANCE LEAD Height 158 cm (5' 2.21 ) 10/05/2022 1:28 PM QUALITY ASSURANCE LEAD Body Mass Index 27.18 10/05/2022 1:28 PM QUALITY ASSURANCE LEAD Plan of Treatment Health Maintenance Due Date Last Done Comments Colon Cancer Screening-Colonoscopy 1955 Depression Screening 1955 Fall Risk Assessment 1955 Hepatitis C Screening 1955 Osteoporosis Screening-Bone Density Scan 1955 Hepatitis B Screening 1973 Pneumococcal vaccine 65+ (2 of 2 - PPSV23) 04/09/2019 04/09/2018 Zoster Vaccine (3 of 3) 06/10/2019 04/15/2019, 09/13 Well Visit 65+ 2020 Breast Cancer Screening-Mammogram [...] compared to prior imaging studies performed at [facility] on 10/01/2017, 10/08/2018 and 11/20/2019. The [...] compared to prior imaging studies performed at [facility] on 10/01/2017, 10/08/2018 and 11/20/2019. The breasts are almost entirely fatty. There is no suspicious abnormality in either breast. Impression: There is no mammographic evidence of malignancy. Annual screening mammography is recommended. OVERALL FINAL ASSESSMENT: BI-RADS CATEGORY 1: Negative. us Self Screening Mammogram IMG MAMMO PROCEDURES Fi nal Result from Last 3 Months or Most Recently Relevant to Health Maintenance Insurance [employer] MEDICARE [facility] CHOICE PLUS [facility] Care Teams Char House Supervisor Relationship Specialty Start Date End Date Keenan Palcaios MD [address] [place] [address] PCP - General 05/25/16 Otilio Kyle MD [address] [place], [place] [id number] Consulting Physician Cardiology 07/10/22
--- OUTSIDE RECORDS SUMMARY | 2024-11-07 14:42 | XMS_ITS | Referral Summary ---
[facility] Organization [facility] Address [address] [place] [address] Care Team Providers Care Hebrew Teacher Name Role Phone Keenan Palacios MD Primary Care Provider Otilio Kyle MD Unavailable [phone] Allergies No known active allergies Medications levothyroxine [...] on file Legal Sex Female 10:22 AM ACCOUNTS RECEIVABLE COORDINATOR Gender Identity Not on file Sexual Orientation Not on file Last Filed Vital Signs Vital Sign Reading Time Taken Comments Blood Pressure 130/76 10/05/2022 1:28 PM ACCOUNTS RECEIVABLE COORDINATOR Pulse 75 10/05/2022 1:28 PM ACCOUNTS RECEIVABLE COORDINATOR Temperature - - Respiratory Rate - - Oxygen Saturation 95% 10/05/2022 1:28 PM ACCOUNTS RECEIVABLE COORDINATOR Inhaled Oxygen Concentration - - Weight 67.9 kg (149 lb 9.6 oz) 10/05/2022 1:28 P M ACCOUNTS RECEIVABLE COORDINATOR Height 158 cm (5' 2.21 ) 10/05/2022 1:28 PM ACCOUNTS RECEIVABLE COORDINATOR Body Mass Index 27.18 10/05/2022 1:28 PM ACCOUNTS RECEIVABLE COORDINATOR Plan of Treatment Not on file Procedures [...] compared to prior imaging studies performed at [facility] on 10/01/2017, 10/08/2018 and 11/20/2019. The [...] compared to prior imaging studies performed at [facility] on 10/01/2017, 10/08/2018 and 11/20/2019. The [...] Relevant to Health Maintenance Insurance [facility] MEDICARE [facility] CHOICE PLUS [facility] Care Teams Hebrew Teacher Relationship Specialty Start Date End Date Keenan Palacios MD [address] [place] [address] PCP - General 05/25/16 Otilio Kyle MD [address] [place], [place] [phone] Consulting Physician Cardiology 07/10/22
== END 2024-11-07 14:39 | disposition home or self-care (01) ==
PROVIDERS: PCP Orthopaedic Surgery; Visit Provider Orthopaedic Surgery
DX: S82.841D Displaced bimalleolar fracture of right lower leg, subsequent encounter for closed fracture with routine healing (principal); M89.9 Disorder of bone, unspecified
CPT/HCPCS: 73610

== ENCOUNTER 2024-11-24 15:10 | Outpatient (RCR) | payer OTHER, SELFPAY ==
--- NOTE | 2024-11-24 16:13 | OPREHPOC ---
Outpatient Therapy Plan of Care This is a Multidisciplinary Plan of Care that may contain components documented by all disciplines (PT, OT, and ST.) PT Problem 1 PT Problem #1 Knowledge Deficit PT Goal 1 Goal / Goal Update Independent with HEP addressing foot/ankle strength and ROM. Target Visit 6 PT Problem 2 PT Problem #2 Impaired Strength PT Goal 1 Goal / Goal Update Improve gross LE strength to 5/5 for improved dynamic stability of the foot/ankle. Target Visit 12 PT Problem 3 PT Problem #3 Impaired Gait PT Goal 1 Goal / Goal Update Pt to improve 6MWT distance to 1000 feet. Pt to ambulate with adequate heel strike, knee flexion and equal stance time bilaterally. Target Visit 12 PT Problem 4 PT Problem #4 Impaired Range of Motion PT Goal 1 Goal / Goal Update Pt to improve active R ankle dorsiflexion to 10 degrees. Pt to improve active R ankle plantarflexion to 50 degrees. Pt to improve active R ankle inversion to 35 degrees. Target Visit 12 PT Problem 5 PT Problem #5 Impaired Functional Mobility PT Goal 1 Goal / Goal Update Pt to report 10% improvement in LEFS score. Target Visit 12
--- NOTE | 2024-11-24 16:14 | PTOPEVAL1 ---
Assessment and note entered by Alla Piedra, PT Evaluation Information Assessment Status Evaluation ICD-10 Condition Codes (PT) Pain in right ankle and joints of right foot M25. 571 Other ICD-10 Condition Codes ( S82.841D PT) Onset 09/27/24 Subjective Information Pt reports fractured her her R tibia and fibula September after sliding on ice while walking on concrete. She reports her fractures were not displaced so she did not require surgery. She was non-weight bearing for 6 weeks using a knee scooter, and following that she was partial weight bearing for 2 weeks using a walker. She's now been cleared by her doctor for the last 2 weeks. She notes swelling in the R ankle that increases during the day with activity, and she was just recently able to fit her shoes on. She does wear a compression stocking during the day, and she notes that she'll go to sleep and when she wakes up her swelling has subsided. She notes throbbing pain in the R ankle during the day both at rest and with activity. Reported Pain Level Pain Score 0: Self Report Assessment PT Clinical Summary Mrs. Zimmerman is a 69 yo female presenting to physical therapy for rehabilitation following nondisplaced R tibia and fibula fracture in September 2024. She demonstrates moderate swelling of the R lower leg as well as impaired passive and active R ankle ROM and gait deviations. She will benefit from skilled PT intervention to improve on these deficits and return to prior level of function. Plan of Care Interventions Electrical Stimulation,Gait Training,Hot Pack/Cold Pack,Intermittent Compression Pump,Manual Therapy ,Neuro Re-education,Patient/Caregiver Education, Therapeutic Activities,Therapeutic Exercise,Self- Care/Home Management PT Services Indicated Yes Treatment Frequency and 3x/week for 12 visits Duration These treatments will address the objective and functional deficits as defined above. The patient will be advanced safely and appropriately in order for the patient to progress towards his/her prior level of function. Additional exercises will be introduced and as well as a comprehensive home exercise program upon discharge, if needed, ?to ensure carryover of functional gains achieved in the clinic. This treatment plan has been reviewed and agreement upon by the patient.
--- NOTE | 2024-12-02 17:32 | PCPTNOTE ---
Patient called & cancelled scheduled appointment this date due to illness.
--- NOTE | 2024-12-19 13:10 | PTOPDC ---
Assessment and note entered by Alla Piedra, PT Evaluation Information Assessment Status Discharge - Pt Not Present ICD-10 Condition Codes (PT) Pain in right ankle and joints of right foot M25. 571 Other ICD-10 Condition Codes ( S82.841D PT) Onset 09/27/24 Subjective Information Pt reports fractured her her R tibia and fibula September after sliding on ice while walking on concrete. She reports her fractures were not displaced so she did not require surgery. She was non-weight bearing for 6 weeks using a knee scooter, and following that she was partial weight bearing for 2 weeks using a walker. She's now been cleared by her doctor for the last 2 weeks. She notes swelling in the R ankle that increases during the day with activity, and she was just recently able to fit her shoes on. She does wear a compression stocking during the day, and she notes that she'll go to sleep and when she wakes up her swelling has subsided. She notes throbbing pain in the R ankle during the day both at rest and with activity. Assessment PT Clinical Summary Mrs. Zimmerman attended 3 total skilled physical therapy visits addressing R foot/ankle pain following a fracture in September. She reports she is doing well and would like to discharge from PT at this time. Plan of Care PT Services Indicated No
== END 2024-11-28 20:00 | disposition home or self-care (01) ==
LOC: CHSPT 15:10
PROVIDERS: Visit Provider Orthopaedic Surgery
DX: S82.841D Displaced bimalleolar fracture of right lower leg, subsequent encounter for closed fracture with routine healing (principal)
CPT/HCPCS: 97110; 97161; 97530

== ENCOUNTER 2025-03-16 09:00 | Outpatient (CLI) | payer BC, SELFPAY ==
--- NOTE | ~2025-03-16 | XR_ITS ---
XR foot LT min 3V Ordering provider: Waylon Martell MD History: . Base of 3rd-5th phalange, dorsum pain X 10 days . Comparison: None. FINDINGS: BONES: Fracture at the base of the proximal phalanx of the fourth toe. Fracture in the distal metaphy sis of the proximal phalanx of the fifth toe. Osteopenia of the bones. Healing fracture at the base o f the fifth metatarsal bone. Postoperative changes in the distal tibia and fibula. JOINT SPACES: Narrowing of the proximal and distal interphalangeal joints. No tarsal coalition. SOFT TISSUES: Normal. IMPRESSION: Fracture in the distal metaphysis of the proximal phalanx of the middle toe. Fracture in the proximal metaphysis of the fourth toe proximal phalanx. Healing fracture at the base of the fifth metatarsal bone. Osteopenia of the bones. Reviewed, dictated and finalized at location A.
== END 2025-03-16 09:01 | disposition home or self-care (01) ==
LOC: CHSIMG 09:02
PROVIDERS: PCP Internal Medicine; Visit Provider Orthopaedic Surgery
DX: S99.922A Unspecified injury of left foot, initial encounter (principal); S92.532A Displaced fracture of distal phalanx of left lesser toe(s), initial encounter for closed fracture; S92.352D Displaced fracture of fifth metatarsal bone, left foot, subsequent encounter for fracture with routine healing; M85.89 Other specified disorders of bone density and structure, multiple sites
CPT/HCPCS: 73630

== ENCOUNTER 2025-05-21 08:53 | Outpatient (CLI) | payer BC, SELFPAY ==
--- OUTSIDE RECORDS SUMMARY | 2025-05-21 09:05 | XMS_ITS | Encounter Summary ---
Author Organization [facility] Address [address] [place] [address] Care Team Providers Care Developmental Services Worker Name Role Phone Keenan Palacios MD Primary Care Provider [phone] Encounter Details Date Type Department Care Team (Late st Contact Info) Description 12/17/2024 Lab Requisition [facility] D[facility] Lab [address] [place] [address] Alejandra Gilbert MD [address] [address] [facility] [address] [place] [address] Social History Tobacco Use Types Packs/Day Years Used Date Smoking Tobacco: Never Smokeless Tobacco: Never Alcohol Use Standard Drinks/Week Comments Yes 2.5 (1 standard drink = 0.6 oz p ure alcohol) Comments No Sex and Gender Information Value Date Recorded Sex Assigned at Not on file Legal Sex Female 6:22 AM ROOM SERVER Gender Identity Not on file Sexual Orientation Not on file documented as of this encounter Plan of Treatment Scheduled Orders Name Type Priority Associated Diagnoses Orde r Schedule DERMATOPATHOLOGY Pathology Cytology Routine Ordered: 12/17/2024 documented as of this encounter Visit Diagnoses Not on filedocumented in this encounter Care Teams Developmental Services Worker Relationship Specialty Start Date End Date Keenan Palacios MD [address] [place] [address] PCP - General 07/26/21 documented as of this encounter
--- OUTSIDE RECORDS SUMMARY | 2025-05-21 09:05 | XMS_ITS | Encounter Summary ---
Author Organization [facility] Address [address] [place] [address] Care Team Providers Care Die Cast Operator Name Role Phone Keenan Palacios MD Primary Care Provider [phone] Encounter Details Date Type Department Care Team (Late st Contact Info) Description 12/17/2024 Lab Requisition [facility] D[facility] Lab [address] [facility] [address] [facility] [place] [address] Alejandra Gilbert MD [address] [facility] [address] [place] [address] Social History Tobacco Use Types Packs/Day Years Used Date Smoking Tobacco: Never Smokeless Tobacco: Never Alcohol Use Standard Drinks/Week Comments Yes 2.5 (1 standard drink = 0.6 oz p ure alcohol) Comments No Sex and Gender Information Value Date Recorded Sex Assigned at Not on file Legal Sex Female 6:22 AM REPAIR SUPERVISOR Gender Identity Not on file Sexual Orientation Not on file documented as of this encounter Plan of Treatment Not on file documented as of this encounter Procedures Procedure Name Priority Date/Time Associated Diagnosis Comments DERMATOPATHOLOGY Routine 12/17/2024 3:55 PM CDT documented in this encounter Results * DERMATOPATHOLOGY (12/17/2024 3:55 PM CDT) Case Report Dermatopathology Report Case: [id number] Authorizing Provider: Alejandra Gilbert MD Collected: 12/17/2024 03:55 PM Ordering Location: [facility] - Received: 12/19/2024 06:32 AM DermPath Lab Pathologist: Jessica Guzman MD Specimen: Skin, left nasal side wall 11:22 AM CDT DERMATOPATHOLOGY LABORATORY Final Diagnosis Specimen A. SKIN, left nasal side wall: SQUAMOUS CELL CARCINOMA IN SITU (TORO'S DISEASE) (D04.39) 11:22 AM CDT DERMATOPATHOLOGY LABORATORY at 1122 CDT Clinical History R/O SCC 11:22 AM CDT DERMATOPATHOLOGY LABORATORY Gross Description Specimen A: Received is one formalin filled container labeled with the patient's name and designated left nasal side wall. The specimen consists of a shave biopsy measuring 3x3x1 mm. Jar 0. 11:22 AM CDT DERMATOPATHOLOGY LABORATORY Microscopic Description Specimen A. SKIN, left nasal side wall: The epidermis shows parakeratosis, full thickness disorderly maturation of keratinocytes, mitoses at different levels, and dyskeratotic cells. 11:22 AM T DERMATOPATHOLOGY LABORATORY Disclaimer An external and internal positive and negative controls are appropriate for the histochemical, immunohistochemical and immunofluorescence stain(s) in this case (if any), except where stated explicitly. The performance characteristics of the stain(s) cited in this report were developed and its performance characteristic determined by the Dermatopathology Laboratory at [facility], directed by Dr. Mimi Briseno. These tests need not be, and therefore are not, approved by the [place] Food and Drug Administration. The tests are used for clinical purposes. Billing Codes Specimen Charges Stain Charges 28433 1 11:22 AM CDT DERMATOPATHOLOGY LABORATORY Embedded Images 11:22 AM CDT DERMATOPATHOLOGY LABORATORY Pathology/Cytolo gy TISSUE SPECIMEN FROM SKIN / Unknown 12/17/2024 3:55 PM CDT 12/19/2024 6:32 AM CDT us Alejandra Gilbert MD LAB - PATHOLOGY/CYTOLOGY ORD ERABLES Final Result DERMATOPATHOLOGY LABORATORY [facility] - Department of Dermatology [address] [phone] documented in this encounter Visit Diagnoses Not on filedocumented in this encounter Care Teams Die Cast Operator Relationship Specialty Start Date End Date Keenan Palacios MD [address] [place] [phone] PCP - General 07/26/21 documented as of this encounter
--- OUTSIDE RECORDS SUMMARY | 2025-05-21 09:05 | XMS_ITS | Clinical Summary ---
Author Organization [facility] Address [address] [place] [address] Care Team Providers Care Political Aide Name Role Phone Keenan Palacios MD Primary Care Provider Otilio Kyle MD Unavailable [phone] Allergies No known active allergies Medications levothyroxine [...] on file Legal Sex Female 10:22 AM SEEING EYE DOG TEACHER Gender Identity Not on file Sexual Orientation Not on file Obstetrics History Last Filed Vital Signs Vital Sign Reading Time Taken Comments Blood Pressure 130/76 10/05/2022 1:28 PM SEEING EYE DOG TEACHER Pulse 75 10/05/2022 1:28 PM SEEING EYE DOG TEACHER Temperature - - Respiratory Rate - - Oxygen Saturation 95% 10/05/2022 1:28 PM SEEING EYE DOG TEACHER Inhaled Oxygen Concentration - - Weight 67.9 kg (149 lb 9.6 oz) 10/05/2022 1:28 P M SEEING EYE DOG TEACHER Height 158 cm (5' 2.21) 10/05/2022 1:28 PM SEEING EYE DOG TEACHER Body Mass Index 27.18 10/05/2022 1:28 PM SEEING EYE DOG TEACHER Plan of Treatment Health Maintenance Due Date Last Done Comments Colon Cancer Screening-Colonoscopy 1955 Depression Screening 1955 Fall Risk Assessment 1955 Hepatitis C Screening 1955 Osteoporosis Screening-Bone Density Scan 1955 Hepatitis B Screening 1973 Pneumococcal vaccine 65+ (2 of 2 - PCV20 or PCV21) 04/09/2019 04/09/2018 Zoster Vaccine (3 of 3) 06/10/2019 04/15/2019, 09/13 Well Visit 65+ 2020 Breast Cancer Screening-Mammogram 01/07/2022 01/07/2021, 11/20/2019, 10/08/2018, Additional history exists Influenza Vaccine (#1) 2025 08/13/2013, 2012 DTaP/Tdap/Td Vaccine (2 - Td or Tdap) 04/01/2028 04/01/2018 Procedures Procedure Name Priority Date/Time Associated Diagnosis Comments SCREENING MAMMOGRAM BILATERAL W YUAN Schedule Routine, Read Routine (OP Routine) 01/07/2021 1:50 PM CDT Encounter for screening mammogram for malignant neoplasm of breast from Last 3 Months or Most Recently Relevant to Health Maintenance Results * Screening Mammogram Bilateral W Yuna (01/07/2021 1:50 PM CDT) Anatomical Region Laterality Modality Breast Bilateral Mammography Narrative 01/12/2021 4:04 PM CDT Mammogram Technique: Bilateral Digital Breast Tomosynthesis, Bilateral C-view 2D Screening mammogram. Views obtained: bilateral craniocaudal and bilateral mediolateral oblique. Computer Aided Detection was performed. Mammogram Findings: The present examination has been compared to prior imaging studies performed at [facility] on 10/01/2017, 10/08/2018 and 11/20/2019. The [...] compared to prior imaging studies performed at [facility] on 10/01/2017, 10/08/2018 and 11/20/2019. The breasts are almost entirely fatty. There is no suspicious abnormality in either breast. Impression: There is no mammographic evidence of malignancy. Annual screening mammography is recommended. OVERALL FINAL ASSESSMENT: BI-RADS CATEGORY 1: Negative. us Self Screening Mammogram IMG MAMMO PROCEDURES Fi nal Result from Last 3 Months or Most Recently Relevant to Health Maintenance Insurance [employer] [place] MEDICARE [facility] CHOICE PLUS [facility] HMO/PPO Address: [address] [address] [place] [address] [facility] Care Teams Political Aide Relationship Specialty Start Date End Date Keenan Palacios MD [address] [place], [place] [phone] PCP - General 05/25/16 Otilio Kyle MD [address] [place], [place] [id number] Consulting Physician Cardiology 07/10/22
--- OUTSIDE RECORDS SUMMARY | 2025-05-21 09:05 | XMS_ITS | Encounter Summary ---
Author Organization [facility] Address [address] [place] [address] Care Team Providers Care Director Of Alumni Relations Name Role Phone Keenan Palacios MD Primary Care Provider [phone] Encounter Details Date Type Department Care Team (Late st Contact Info) Description 07/18/2023 Lab Requisition [facility] - DermPath Lab [address] [facility], [place] [address] Alejandra Gilbert MD [address] [facility] 3 [place] [address] Social History Tobacco Use Types Packs/Day Years Used Date Smoking Tobacco: Never Smokeless Tobacco: Never Alcohol Use Standard Drinks/Week Comments Yes 2.5 (1 standard drink = 0.6 oz p ure alcohol) Comments No Sex and Gender Information Value Date Recorded Sex Assigned at Not on file Legal Sex Female 6:22 AM PUBLIC HEALTH INSPECTOR Gender Identity Not on file Sexual Orientation Not on file documented as of this encounter Plan of Treatment Not on file documented as of this encounter Procedures Procedure Name Priority Date/Time Associated Diagnosis Comments DERMATOPATHOLOGY Routine 07/18/2023 10:0 7 AM CDT documented in this encounter Results * DERMATOPATHOLOGY (07/18/2023 10:07 AM CDT) Case Report Dermatopathology Report Case: [id number] Authorizing Provider: Alejandra Gilbert MD Collected: 07/18/2023 10:07 AM Ordering Location: [facility] DermPath Lab Received: 07/19/2023 06:01 AM Pathologist: Jennie Guzman MD Specimen: Skin, left forearm 3 2:59 PM CDT DERMATOPATHOLOGY LABORATORY Final Diagnosis Specimen A. 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 Mimi Briseno. These tests need not be, and therefore are not, approved by the [place] Food and Drug Administration. The tests are used for clinical purposes. Billing Codes Specimen Charges Stain Charges 97735 1 3 2:59 PM CDT DERMATOPATHOLOGY LABORATORY Embedded Images 3 2:59 PM CDT DERMATOPATHOLOGY LABORATORY Pathology/Cytolo gy TISSUE SPECIMEN FROM SKIN / Unknown 07/18/2023 10:07 AM CDT 07/19/2023 6:01 AM CDT us Alejandra Gilbert MD LAB - PATHOLOGY/CYTOLOGY ORD ERABLES Final Result DERMATOPATHOLOGY LABORATORY [facility] - Department of Dermatology [facility] Medicine [address] [place] [address], [address] [phone] documented in this encounter Visit Diagnoses Not on filedocumented in this encounter Care Teams Director Of Alumni Relations Relationship Specialty Start Date End Date Keenan Palacios MD [address] [place] [address] PCP - General 07/26/21 documented as of this encounter
--- OUTSIDE RECORDS SUMMARY | 2025-05-21 09:05 | XMS_ITS | Clinical Summary ---
Author Organization [facility] [employer] Address [address] [place] [address] Care Team Providers Care Certified Real Estate Appraiser Name Role Phone Keenan Palacios MD Primary Care Provider [phone] Source Comments [facility] [employer],non-owned Affiliates and Associated Physician Practices is amultiple site organization consisting of ambulatory clinics and hospital sitesin [place], [place], [place] and [place]. This disclosure is being madepursuant to the Care Everywhere program and may not contain all information available regarding this patient. Last updated 18.[employer] Allergies No known active allergies Medications * Be aware that medications may not be up to date on this document. Alwaysverify current medications with the patient. metoprolol tartrate IR (LOPRESSOR) 100 MG tablet Take 100 mg by mouth 2 times daily. Active CALCIUM-MAGNESI UM-VITAMIN D PO Take by mouth. Calcium 630/Vit D 400 Active Zoledronic Acid (RECLAST IV) by Intravenous route. One time per year Active docusate sodium (COLACE) 100 MG capsule Take 1 Cap by mouth 2 times daily. 100 Cap 5 1 Active sulfamethoxazol e-trimethoprim (BACTRIM DS; SEPTRA DS) 800-160 MG tablet Take 1 Tab by mouth every 12 hours. For duration of catheterization. If patient is sent home without a catheter, this prescription may be disregarded. 14 Tab 0 1 Active oxycodone-aceta minophen (PERCOCET) 5-325 MG tablet Take 1 Tab by mouth every 6 hours as needed for Pain. 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 Gender Identity Not on file Sexual Orientation [...] 11:35 AM CDT Height 157.5 cm (5' 2) 05/12/2011 11:35 AM CDT Body Mass Index [...] 2005 ZOSTER VACCINE (1 of 2) 2005 DEPRESSION SCREENING 09/17/2024 COVID-19 VACCINE (1 - 2023-2 5 season) 2025 INFLUENZA VACCINE (#1) 2025 Respiratory Syncytial Virus (RSV) Vaccine Pt: or [...] to complete this topic MENINGOCOCCAL (Group B) VACC INE SHARED DECISION-MAKING Aged Out No longer eligibl e based on patient's age to complete this topic MENINGOCOCCAL GROUPS A/C/Y/W VACCINE Aged Out No longer eligible b ased on patient's age to complete this topic Insurance ANTHEM ANTHANITA Advance Directives * FULL RESUSCITATION (Latest Code Status on File) Date Activated Date Inactivated Comments 05/15/2011 12:38 PM 05/17/2011 5:10 AM Care Teams Certified Real Estate Appraiser Relationship Specialty Start Date End Date Keenan Palacios MD [address] [place] [phone] PCP - General 07/26/21
--- OUTSIDE RECORDS SUMMARY | 2025-05-21 09:05 | XMS_ITS | Encounter Summary ---
Author Organization [facility] Address [address] [facility] [address] Care Team Providers Care Antique Furniture Repairer Name Role Phone Keenan Palacios MD Primary Care Provider [phone] Encounter Details Date Type Department Care Team (Late st Contact Info) Description 09/05/2023 Lab Requisition [facility] - DermPath Lab [address] 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 Gender Identity Not on file Sexual Orientation Not on file documented as of this encounter Plan of Treatment Not on file documented as of this encounter Procedures Procedure Name Priority Date/Time Associated Diagnosis Comments DERMATOPATHOLOGY Routine 09/05/2023 9:11 AM SHEETER HELPER documented in this encounter Results * DERMATOPATHOLOGY (09/05/2023 9:11 AM SHEETER HELPER) Case Report Dermatopathology Report Case: [id number] Authorizing Provider: Alejandra Gilbert MD Collected: 09/05/2023 09:11 AM Ordering Location: [facility] DermPath Lab Received: 09/05/2023 02:08 PM Pathologist: Jennie Guzman MD Specimen: Skin, left FA 1:08 PM [facility] DERMATOPATHOLOGY LABORATORY Final Diagnosis Specimen A. SKIN, left FA: DERMAL SCAR RESIDUAL SQUAMOUS CELL CARCINOMA NOT IDENTIFIED (L90.5) BENIGN VERRUCOUS KERATOSIS (L82.1) 1:08 PM [facility] DERMATOPATHOLOGY LABORATORY at 1308 SHEETER HELPER Clinical History SCCIS 1:08 PM [facility] DERMATOPATHOLOGY LABORATORY Gross Description Specimen A: Received is one formalin filled container labeled with the patient's name and designated left FA. The specimen consists of a non-oriented ellipse of skin measuring [id number] mm. The margin is inked green. The 12 o'clock and 6 o'clock tips are submitted in cassette 1. The remainder of the ellipse is serially sectioned and submitted in cassette 2 - 3. Jar 0. 1:08 PM [facility] DERMATOPATHOLOGY LABORATORY Microscopic Description Specimen A. [...] vulgaris or a seborrheic keratosis. 1:08 PM [facility] DERMATOPATHOLOGY LABORATORY Disclaimer An external and internal positive and negative controls are appropriate for the histochemical, immunohistochemical and immunofluorescence stain(s) in this case (if any), except where stated explicitly. The performance characteristics of the stain(s) cited in this report were developed and its performance characteristic determined by the Dermatopathology Laboratory at [facility], directed by Dr. Mimi Briseno. These tests need not be, and therefore are not, approved by the [place] Food and Drug Administration. The tests are used for clinical purposes. Billing Codes Specimen Charges Stain Charges 47378 1 1:08 PM [facility] DERMATOPATHOLOGY LABORATORY Embedded Images 1:08 PM [facility] DERMATOPATHOLOGY LABORATORY Pathology/Cytolo gy TISSUE SPECIMEN FROM SKIN / Unknown 09/05/2023 9:11 AM SHEETER HELPER 09/05/2023 2:08 PM SHEETER HELPER us Alejandra Gilbert MD LAB - PATHOLOGY/CYTOLOGY ORD ERABLES Final Result DERMATOPATHOLOGY LABORATORY [facility] - Department of Dermatology [facility] Medicine [address] [place] [address], [address] [phone] documented in this encounter Visit Diagnoses Not on filedocumented in this encounter Care Teams Antique Furniture Repairer Relationship Specialty Start Date End Date Keenan Palacios MD [address] [place] [address] PCP - General 07/26/21 documented as of this encounter
--- NOTE | 2025-06-08 09:21 | WPDHOLTEREM ---
Holter/Event Monitor Holter/Event Monitor Date of procedure: 05/21/25 Holter/Event Procedure: Event Monitor Indications: Bradycardia Conclusion: 1. 13 days event monitor on 05/21/25. 2. Predominant rhythm is sinus rhythm. HR range 45-207 bpm; average HR 77 bpm. HR at 45 bpm was on 05/26/25 at 6:51 am. 3. There are rare premature supraventricular complexes, rare supraventricular couplets, and rare supraventricular triplets. There are 14 episodes of supraventricular tachycardia with fastest at 207 bpm and longest lasting 19 beats. 4. There are rare premature ventricular complexes. No ventricular tachycardia. 5. No significant pauses greater than 3 seconds. 6. No symptoms available for correlation.
== END 2025-05-21 08:54 | disposition home or self-care (01) ==
LOC: CHSCARD 08:54
PROVIDERS: PCP Internal Medicine; Visit Provider Internal Medicine
DX: R00.1 Bradycardia, unspecified (principal); I47.10 Supraventricular tachycardia, unspecified; R00.8 Other abnormalities of heart beat
CPT/HCPCS: 93246

== ENCOUNTER 2025-06-08 13:19 | Outpatient (CLI) | payer BC, SELFPAY ==
--- OUTSIDE RECORDS SUMMARY | 2002-05-02 09:45 | XMS_ITS | Continuity of Care Document ---
Author Organization [facility] Address [address] [place] [address] Phone Care Team Providers Care Story Reader Name Role Phone Janes, Edward Unavailable Unavailable Advance Directives Directive Yes / No Effective Date File Name No Information Encounters Encounter Description Practice Location Reason(s) For Visit Diagnoses Date Provider Providers Copied on Encounter [facility], [address], [place], [place], [id number], [place] tel:[phone] [facility] No Information 2 Doisy Edward. [address] , [address], [place], [address], [place]. tel:[phone] Family History Family Member Type Diagnosis Age At Onset No Information Payers Payer name Insurance type Covered constitution party ID Authoriza tion(s) [employer] SOI CI [id number] Social History Type Description Quantity Date Captured Comments Sex Female Smoking Status No Information Chief Complaint And Reason For Visit No Information Reason For Referral Reason For Referral No Information History Of Present Illness Encounter Date Complaint History Of Prese nt Illness No Information Functional Status Date Functional Assessmen t No Information Instructions Date Instruction Additional Infor mation No Information Assessments Type Assessment Date No Information Patient Care Teams Name Effective Dates (start - stop) Status Members No Information
--- NOTE | ~2025-06-08 | DEXA_ITS ---
Bone Density Report Name: RUSS VYAS Age: 69 Sex: Female Ethnicity: White Date of : 1955 Indication: postmenopausal osteoporosis; monitoring treatment; hysterectomy; Referring Provider: Keenan Palacios Study: Bone densitometry was performed. Exam Date: June 08, 2025 Accession number: [id number] Bone Density: Region BMD T-score Z-score Classification AP Spine(L1-L4) 0.788 -2.4 -0.3 Osteopenia Femoral Neck (Left) 0.577 -2.4 -0.7 Osteopenia Total Hip (Left) 0.772 -1.4 0.1 Osteopenia Femoral Neck (Right) 0.541 -2.8 -1.0 Osteoporosis Total Hip (Right) 0.706 -1.9 -0.4 Osteopenia Femoral Neck Mean 0.559 -2.6 -0.8 Osteoporosis Total Hip Mean 0.739 -1.7 -0.2 Osteopenia World Health Organization criteria for BMD impression classify patients as: Normal (T-score at or above -1.0), Osteopenia (T-score between -1.0 and -2.5), or Osteoporosis (T-score at or below -2.5). 10-year Fracture Risk: FRAX not reported because: Some T-score for Spine Total or Hip Total or Femoral Neck at or below -2.5 Treated for osteoporosis Previous Exams: Region Exam Age BMD T-score BMD Change BMD Change Date g/cm2 vs Baseline vs Previous AP Spine (L1-L4) 06/08/2025 69 0.788 -2.4 0.046 (6.2%)* 0.046 (6.2%)* 04/24/2024 68 0.742 -2.8 Total Hip(Left) 06/08/2025 69 0.772 -1.4 0.046 (6.4%)* 0.046 (6.4%)* 04/24/2024 68 0.726 -1.8 Total Hip(Right) 06/08/2025 69 0.706 -1.9 0.009 (1.3%) 0.009 (1.3%) 04/24/2024 68 0.698 -2.0 *Denotes significance at 95% confidence level, LSC for AP Spine = 0.022 g/cm2, LSC for Total Hip = 0.027 g/cm2 Clinical Information Provided by Patient: Is being treated for osteoporosis Has used the following medications: Reclast (i.e. zoledronate), Vitamin D Has the following medical conditions: Hysterectomy Patient maximum height was 62 Menopause Age: 50 No regular weight bearing exercise Does not regularly consume dairy products Drinks caffeinated beverages Onset of menses at age 16 Number of children 3 Missed period for more than 6 months in a row Impression: The patient has osteoporosis, based on the Right Femoral Neck T-score. No significant bone loss was observed. Discussion: PATIENT UNDER TREATMENT WITH NO SIGNIFICANT BMD LOSS SINCE LAST EXAM. In an untreated patient, BMD typically declines with age. A lack of decline or gain is usually a sign that treatment is efficacious and fracture risk is reduced. It is important to ask patients whether they are taking their medications and to encourage continued and appropriate compliance with their osteoporosis therapies to reduce fracture risk. It is also important to review their risk factors and encourage appropriate calcium and vitamin D intakes, exercise, fall prevention and other lifestyle measures. Follow-Up: Consider a repeat BMD and Vertebral Fracture Assessment (VFA) exam in 2 years or sooner if medically necessary, to reassess this patient's status. Reported by: KARLOS on 06/08/2025 1:58:00 PM. Reviewed, dictated and finalized at location A.
--- NOTE | ~2025-06-08 | MM_ITS ---
EXAMINATION: MM screening michel BI w leyda HISTORY: Screening TECHNIQUE: Craniocaudal and mediolateral oblique 3-D tomosynthesis images were obtained and synthetic 2-D images were generated. CAD analysis was submitted and interpreted. COMPARISON: 04/16/2023 BREAST PARENCHYMAL COMPOSITION: Not Dense: The breasts are almost entirely fatty. FINDINGS: There is no evidence of suspicious mass, calcification, or architectural distortion to suggest malignancy. There has been no suspicious interval change. IMPRESSION: 1. No mammographic evidence of malignancy. Recommend routine screening mammography in one year. BI-RADS Category 2: Benign finding(s) Reviewed, dictated and finalized at location Q. IMPRESSION: 1. No mammographic evidence of malignancy. Recommend routine screening mammogra phy in one year. BI-RADS Category 2: Benign finding(s)
--- OUTSIDE RECORDS SUMMARY | 2025-06-08 13:49 | XMS_ITS | Clinical Summary ---
Author Organization [facility] [employer] Address [address] [place] [address] Care Team Providers Care Processing Engineer Name Role Phone Keenan Palacios MD Primary Care Provider [phone] Source Comments [facility] [employer],non-owned Affiliates and Associated Physician Practices is amultiple site organization consisting of ambulatory clinics and hospital sitesin [place], [place], [place] and [place]. This disclosure is being madepursuant to the Care Everywhere program and may not contain all information available regarding this patient. 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
--- OUTSIDE RECORDS SUMMARY | 2025-06-08 13:49 | XMS_ITS | Encounter Summary ---
Author Organization [facility] Address [address] [place] [address] Care Team Providers Care Rigging Up Worker Name Role Phone Keenan Palacios MD Primary Care Provider [phone] Encounter Details Date Type Department Care Team (Late st Contact Info) Description 12/17/2024 Lab Requisition [facility] Derm[facility] Lab [address] 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 Gender Identity Not on file Sexual Orientation Not on file documented as of this encounter Plan of Treatment Not on file documented as of this encounter Procedures Procedure Name Priority Date/Time Associated Diagnosis Comments DERMATOPATHOLOGY Routine 12/17/2024 3:55 PM CDT documented in this encounter Results * DERMATOPATHOLOGY (12/17/2024 3:55 PM CDT) Case Report Dermatopathology Report Case: [id number] Authorizing Provider: Alejandra Gilbert MD Collected: 12/17/2024 03:55 PM Ordering Location: [facility] - Received: 12/19/2024 06:32 AM [...] characteristic determined by the Dermatopathology Laboratory at [facility], directed by Dr. Mimi Briseno. These tests need not be, and therefore are not, approved by the [place] Food and Drug Administration. The tests are used for clinical purposes. Billing Codes Specimen Charges Stain Charges 58048 1 11:22 AM CDT DERMATOPATHOLOGY LABORATORY Embedded Images 11:22 AM CDT DERMATOPATHOLOGY LABORATORY Pathology/Cytolo gy TISSUE SPECIMEN FROM SKIN / Unknown 12/17/2024 3:55 PM CDT 12/19/2024 6:32 AM CDT us Alejandra Gilbert MD LAB - PATHOLOGY/CYTOLOGY ORD ERABLES Final Result DERMATOPATHOLOGY LABORATORY [facility] - Department of Dermatology [address], [address] [phone] documented in this encounter Visit Diagnoses Not on filedocumented in this encounter Care Teams Rigging Up Worker Relationship Specialty Start Date End Date Keenan Palacios MD [address] [place] [phone] PCP - General 07/26/21 documented as of this encounter
--- OUTSIDE RECORDS SUMMARY | 2025-06-08 13:49 | XMS_ITS | Encounter Summary ---
Author Organization [facility] Address [address] [place] [address] Care Team Providers Care Golf Club Maker Name Role Phone Keenan Palacios MD Primary Care Provider [phone] Encounter Details Date Type Department Care Team (Late st Contact Info) Description 09/05/2023 Lab Requisition [facility] - DermPath Lab [address] [facility], [place] [address] Alejandra Gilbert MD [address] [facility] 3L [place] [address] Social History Tobacco Use Types Packs/Day Years Used Date Smoking Tobacco: Never Smokeless Tobacco: Never Alcohol Use Standard Drinks/Week Comments Yes 2.5 (1 standard drink = 0.6 oz p ure alcohol) Comments No Sex and Gender Information Value Date Recorded Sex Assigned at Not on file Legal Sex Female 6:22 AM PLASTICS ENGINEERING TEACHER Gender Identity Not on file Sexual Orientation Not on file documented as of this encounter Plan of Treatment Not on file documented as of this encounter Procedures Procedure Name Priority Date/Time Associated Diagnosis Comments DERMATOPATHOLOGY Routine 09/05/2023 9:11 AM PLASTICS ENGINEERING TEACHER documented in this encounter Results * DERMATOPATHOLOGY (09/05/2023 9:11 AM PLASTICS ENGINEERING TEACHER) Case Report Dermatopathology Report Case: [id number] Authorizing Provider: Alejandra Gilbert MD Collected: 09/05/2023 09:11 AM Ordering Location: [facility] DermPath Lab Received: 09/05/2023 02:08 PM Pathologist: Jennie Guzman MD Specimen: Skin, left FA 1:08 PM [facility] DERMATOPATHOLOGY LABORATORY Final Diagnosis Specimen A. SKIN, left FA: DERMAL SCAR RESIDUAL SQUAMOUS CELL CARCINOMA NOT IDENTIFIED (L90.5) BENIGN VERRUCOUS KERATOSIS (L82.1) 1:08 PM [facility] DERMATOPATHOLOGY LABORATORY at 1308 PLASTICS ENGINEERING TEACHER Clinical History SCCIS 1:08 PM [facility] DERMATOPATHOLOGY LABORATORY Gross Description Specimen A: Received is one formalin filled container labeled with the patient's name and designated left FA. The specimen consists of a non-oriented ellipse of skin measuring [id number] mm. The margin is inked green. The 12 o'clock and 6 o'clock tips are submitted in cassette 1. The remainder of the ellipse is serially sectioned and submitted in cassette 2 - 3. Jar 0. 1:08 PM [facility] DERMATOPATHOLOGY LABORATORY Microscopic Description Specimen [...] vulgaris or a seborrheic keratosis. 1:08 PM [facility] DERMATOPATHOLOGY LABORATORY Disclaimer An external and internal positive and negative controls are appropriate for the histochemical, immunohistochemical and immunofluorescence stain(s) in this case (if any), except where stated explicitly. The performance characteristics of the stain(s) cited in this report were developed and its performance characteristic determined by the Dermatopathology Laboratory at [facility], directed by Dr. Mimi Briseno. These tests need not be, and therefore are not, approved by the [place] Food and Drug Administration. The tests are used for clinical purposes. Billing Codes Specimen Charges Stain Charges 68306 1 1:08 PM [facility] DERMATOPATHOLOGY LABORATORY Embedded Images 1:08 PM [facility] DERMATOPATHOLOGY LABORATORY Pathology/Cytolo gy TISSUE SPECIMEN FROM SKIN / Unknown 09/05/2023 9:11 AM PLASTICS ENGINEERING TEACHER 09/05/2023 2:08 PM PLASTICS ENGINEERING TEACHER us Alejandra Gilbert MD LAB - PATHOLOGY/CYTOLOGY ORD ERABLES Final Result DERMATOPATHOLOGY LABORATORY [facility] - Department of Dermatology [facility] Medicine [address] [place] [address], [address] [phone] documented in this encounter Visit Diagnoses Not on filedocumented in this encounter Care Teams Golf Club Maker Relationship Specialty Start Date End Date Keenan Palacios MD [address] [place] [address] PCP - General 07/26/21 documented as of this encounter
--- OUTSIDE RECORDS SUMMARY | 2025-06-08 13:49 | XMS_ITS | Encounter Summary ---
Author Organization [facility] Address [address] [place] [place] [address] Care Team Providers Care Rooming House Operator Name Role Phone Keenan Palacios MD Primary Care Provider [phone] Encounter Details Date Type Department Care Team (Late st Contact Info) Description 07/18/2023 Lab Requisition [facility] - DermPath Lab [address] [facility], [place] [address] Alejandra Gilbert MD [address] [facility] 3 [place] [address] Social History Tobacco Use Types Packs/Day Years Used Date Smoking Tobacco: Never Smokeless Tobacco: Never Alcohol Use Standard Drinks/Week Comments Yes 2.5 (1 standard drink = 0.6 oz p ure alcohol) Comments No Sex and Gender Information Value Date Recorded Sex Assigned at Not on file Legal Sex Female 6:22 AM CLINICAL PROGRAM COORDINATOR Gender Identity Not on file Sexual Orientation Not on file documented as of this encounter Plan of Treatment Not on file documented as of this encounter Procedures Procedure Name Priority Date/Time Associated Diagnosis Comments DERMATOPATHOLOGY Routine 07/18/2023 10:0 7 AM CDT documented in this encounter Results * DERMATOPATHOLOGY (07/18/2023 10:07 AM CDT) Case Report Dermatopathology Report Case: [id number] Authorizing Provider: Alejandra Gilbert MD Collected: 07/18/2023 10:07 AM Ordering Location: [facility] DermPath Lab Received: 07/19/2023 06:01 AM Pathologist: Jennie Guzman MD Specimen: Skin, left forearm 3 2:59 PM CDT DERMATOPATHOLOGY LABORATORY Final Diagnosis Specimen A. SKIN, left forearm: SQUAMOUS CELL CARCINOMA IN SITU (TORO'S DISEASE) (D04.62) ACTINIC KERATOSIS (L57.0) 3 2:59 PM CDT DERMATOPATHOLOGY LABORATORY at 1459 CDT Clinical History [place] Papule R/O SCC vs [place] 3 2:59 [...] determined by the Dermatopathology Laboratory at [facility], directed by Dr. Mimi Briseno. These tests need not be, and therefore are not, approved by the [place] Food and Drug Administration. The tests are used for clinical purposes. Billing Codes Specimen Charges Stain Charges 87439 1 3 2:59 PM CDT DERMATOPATHOLOGY LABORATORY Embedded Images 3 2:59 PM CDT DERMATOPATHOLOGY LABORATORY Pathology/Cytolo gy TISSUE SPECIMEN FROM SKIN / Unknown 07/18/2023 10:07 AM CDT 07/19/2023 6:01 AM CDT us Alejandra Gilbert MD LAB - PATHOLOGY/CYTOLOGY ORD ERABLES Final Result DERMATOPATHOLOGY LABORATORY [facility] - Department of Dermatology [facility] Medicine [address] [place] [address], [address] [phone] documented in this encounter Visit Diagnoses Not on filedocumented in this encounter Care Teams Rooming House Operator Relationship Specialty Start Date End Date Keenan Palacios MD [address] [place] [address] PCP - General 07/26/21 documented as of this encounter
--- OUTSIDE RECORDS SUMMARY | 2025-06-08 13:49 | XMS_ITS | Encounter Summary ---
Author Organization [facility] Address [address] [facility] [place] [address] Care Team Providers Care Gate Operator Name Role Phone Keenan Palacios MD Primary Care Provider [phone] Encounter Details Date Type Department Care Team (Late st Contact Info) Description 12/17/2024 Lab Requisition [facility] - DermPath Lab [address] [facility], [place] [address] Alejandra Gilbert MD [address] [facility] 3 [place] [address] Social History Tobacco Use Types Packs/Day Years Used Date Smoking Tobacco: Never Smokeless Tobacco: Never Alcohol Use Standard Drinks/Week Comments Yes 2.5 (1 standard drink = 0.6 oz p ure alcohol) Comments No Sex and Gender Information Value Date Recorded Sex Assigned at Not on file Legal Sex Female 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
== END 2025-06-08 13:20 | disposition home or self-care (01) ==
LOC: CHSIMG 13:22
PROVIDERS: PCP Internal Medicine; Visit Provider Internal Medicine
DX: Z12.31 Encounter for screening mammogram for malignant neoplasm of breast (principal); Z78.0 Asymptomatic menopausal state; M85.89 Other specified disorders of bone density and structure, multiple sites; M81.0 Age-related osteoporosis without current pathological fracture
CPT/HCPCS: 77063; 77067; 77080

== ENCOUNTER 2025-08-25 08:49 | Outpatient (CLI) | payer BC, SELFPAY ==
[2025-08-25 09:07] VITALS: BP 129/70; PULSE 72; RESP 16; TEMP 36.4; O2SAT 97; BMI 27.3
[2025-08-25] MEDS: ZOLEDRONIC ACID 5 MG/100 ML 100 ML 400 MG IVPB (09:45)
[2025-08-25 10:10] VITALS: BP 126/72; PULSE 76; RESP 14
--- NOTE | 2025-08-25 10:10 | PC.NURSE ---
Patient tolerated Reclast infusion well. SEE MAR/patient care notes.
== END 2025-08-25 08:50 | disposition home or self-care (01) ==
PROVIDERS: PCP Internal Medicine; Visit Provider Internal Medicine
DX: M81.0 Age-related osteoporosis without current pathological fracture (principal)
CPT/HCPCS: 96374; J3489